=== PATIENT | female | born 1985 | race African-American/Black ===

== ENCOUNTER 2016-05-19 17:55 | Inpatient (IN) | payer BC, OTHER ==
[2016-05-19] MEDS ORDERED: NORMAL SALINE 1000 ML 1,000 ML IV ONE (18:07)
[2016-05-19] MEDS ORDERED: KETAMINE HCL INJ 500 MG/10 ML VIAL ONE (18:27)
[2016-05-19 18:32] LABS: ABSOLUTE LYMPHOCYTES (AUTO) 0.8 10^3/uL (0.5-4.7); ABSOLUTE MONOCYTES (AUTO) 0.7 10^3/uL (0.1-1.4); ABSOLUTE NEUT (AUTO) 6.6 10^3/uL (1.7-8.2); BASOPHILS % (AUTO) 0.4 % (0-2); EOSINOPHILS % (AUTO) 0.4 % (0-6); HEMOGLOBIN 12.8 g/dL (12.0-15.5); HGB HCT DIFFERENCE 0.4; LYMPHOCYTES % (AUTO) 10.4 % (13-45); MEAN CORPUSCULAR HEMOGLOBIN 31.4 pg (27.0-33.4); MEAN CORPUSCULAR HGB CONC 33.8 g/dL (32.0-36.0); MEAN CORPUSCULAR VOLUME 93 fl (80-97); MONOCYTES % (AUTO) 8.2 % (3-13); RED BLOOD COUNT 4.09 10^6/uL (3.72-5.28); RED CELL DISTRIBUTION WIDTH 12.9 % (11.5-14.0); SEGMENTED NEUTROPHILS % (AUTO) 80.6 % (42-78); WHITE BLOOD COUNT 8.1 10^3/uL (4.0-10.5)
[2016-05-19 18:53] LABS: ALANINE AMINOTRANSFERASE 29 U/L (9-52); ALBUMIN 4.1 g/dL (3.5-5.0); ALKALINE PHOSPHATASE 69 U/L (38-126); ANION GAP 13 (5-19); ASPARTATE AMINO TRANSFERASE 26 U/L (14-36); BILIRUBIN,TOTAL 0.5 mg/dL (0.2-1.3); BLOOD UREA NITROGEN 8 mg/dL (7-20); CALCIUM 9.2 mg/dL (8.4-10.2); CARBON DIOXIDE 21 mmol/L (22-30); CHLORIDE 106 mmol/L (98-107); CREATININE RESULT 0.67 mg/dL (0.52-1.25); GLUCOSE 99 mg/dL (75-110); TOTAL PROTEIN 7.6 g/dL (6.3-8.2)
--- NOTE | 2016-05-19 19:19 | ER Document Report ---
ED Respiratory Problem - General Mode of Arrival: Medic Information source: Patient - HPI Patient complains to provider of: Short of breath Onset: Just prior to arrival Duration: Worse/persistent Severity: Severe Associated symptoms: None Similar symptoms previously: No Recently seen / treated by doctor: No <QUIANA DUDLEY - Last Filed: 05/19/16 21:38> <MEGHANA LAWRENCE - Last Filed: 05/19/16 23:30> - General Chief Complaint: Breathing Difficulty Stated Complaint: CHEST PAIN Notes: Patient is a 30 year old female that presents to the emergency department today with complaints of a sudden onset of shortness of breath just prior to arrival. EMS reports hearing no breath sounds on the left side and they are concerned for a possible pneumothorax. Patient denies any other symptoms. (QUIANA DUDLEY) Past Medical History - General Information source: Patient - Social History Smoking Status: Never Smoker Cigarette use (# per day): No Frequency of alcohol use: None Drug Abuse: None Lives with: Family Family History: Reviewed & Not Pertinent - Medical History Medical History: Negative Surgical Hx: Negative <QUIANA DUDLEY - Last Filed: 05/19/16 21:38> Review of Systems - Review of Systems Constitutional: No symptoms reported EENT: No symptoms reported Cardiovascular: No symptoms reported Respiratory: See HPI, Short of breath - with associated pain Gastrointestinal: No symptoms reported Genitourinary: No symptoms reported Female Genitourinary: No symptoms reported Musculoskeletal: No symptoms reported Skin: No symptoms reported Hematologic/Lymphatic: No symptoms reported Neurological/Psychological: No symptoms reported -: Yes All other systems reviewed and negative <QUIANA DUDLEY - Last Filed: 05/19/16 21:38> Physical Exam <QUIANA DUDLEY - Last Filed: 05/19/16 21:38> <MEGHANA LAWRENCE - Last Filed: 05/19/16 23:30> - Vital signs Vitals: Temp Pulse Resp BP Pulse Ox 97.7 F 113 H 34 H 107/57 L 100 05/19/16 18:05 05/19/16 18:05 05/19/16 18:05 05/19/16 18:05 05/19/16 18:05 (MEGHANA LAWRENCE) - Notes Notes: Physical Exam: General: Alert, in severe distress. HEENT: Normocephalic. Atraumatic. PERRL. Extraocular movements intact. Oropharynx clear. Neck: Supple. Non-tender. Respiratory: Severe respiratory distress. Tachypneic, retractions, no breath sounds on the left. Cardiovascular: Tachycardic, regular rhythm. Abdominal: Normal Inspection. Non-tender. No distension. Normal Bowel Sounds. Back: Non-tender. No deformity or step off. Extremities: Moves all four extremities. Upper extremities: Normal inspection. Non-tender. Normal color. Normal ROM. Normal temperature. Lower extremities: Normal inspection. Non-tender. No edema. Normal color. Normal ROM. Normal temperature. Neurological: Normal cognition. AAOx4. Normal speech. Psychological: Normal affect. Normal Mood. Skin: Warm. Dry. Normal color. (QUIANA DUDLEY) Course - Laboratory Result Diagrams: 05/19/16 18:21 05/19/16 18:21 - Consults Surgery Time consulted: 19:50 Consulted provider: will come to ER <QUIANA DUDLEY - Last Filed: 05/19/16 21:38> - Laboratory Result Diagrams: 05/19/16 18:21 05/19/16 18:21 - Diagnostic Test Radiology reviewed: Image reviewed, Reports reviewed <MEGHANA LAWRENCE - Last Filed: 05/19/16 23:30> - Re-evaluation Re-evalutation: 05/19/16 Patient presents with large spontaneous pneumothorax. Patient had a chest tube placed with some reexpansion. Surgeon was called to evaluate the patient who placed a small straight catheter as well. Patient will be admitted to the surgical service. Otherwise stable. Blood work within normal limits. Stable at time of admission. (MEGHANA LAWRENCE) - Vital Signs Vital signs: Temp Pulse Resp BP Pulse Ox 97.7 F 113 H 14 115/81 100 05/19/16 18:05 05/19/16 18:05 05/19/16 20:01 05/19/16 20:00 05/19/16 20:01 (MEGHANA LAWRENCE) - Laboratory Laboratory results interpreted by me: 05/19/16 05/19/16 18:21 18:21 Seg Neutrophils % 80.6 H Lymphocytes % 10.4 L Carbon Dioxide 21 L (QUIANA DUDLEY) (MEGHANA LAWRENCE) - Consults Surgery Reason for consultation: 05/19/16 19:50 Pneumothorax, Dr. Martin. (QUIANA DUDLEY) Procedures - Chest Tube Left Consent obtained: Yes Chest tube pre-insertion: Sterile PPE donned, Chloraprep applied, Sterile drapes applied Anesthetic type: 1% Lidocaine Chest tube post-insertion: Air gambino heard, Sutured, Position confirmed w/ CXR, Water seal, Low intermittent suction Number of attempts: 1 Complications: No - Conscious Sedation Conscious sedation Consent obtained: No Emergent conditions applies.: E. - ASA Classification Airway Evaluation: Normal anatomy Mallampati Classification: Class 1 Used during procedure: Suction available, IV access obtained, Pulse ox on pt., telemetry monitor on pt. Medications administered: Ketamine I personally performed/intraservice time: Sedation, Procedure, 31-45 min Complications: No - Additional Procedures Chest tube placement Additional Procedures: Other - Left chest tube placed. Area was prepped with ChloraPrep. Fourth intercostal space was palpated. 16 Bel[place]ian chest tube placed in the axillary line on the left. Good air return. Patient tolerated well. X-ray shows some reexpansion of lung. <MEGHANA LAWRENCE - Last Filed: 05/19/16 23:30> Critical Care Note - Critical Care Note Total time excluding time spent on procedures (mins): 45 - evaluation and management of difficulty breathing, multiple re-evaluations, consultation of surgeon, coordination of admission, counseling patient <MEGHANA LAWRENCE - Last Filed: 05/19/16 23:30> Discharge <QUIANA DUDLEY - Last Filed: 05/19/16 21:38> - Discharge Admitting Provider: Surgicalist - [facility] Unit Admitted: Surgical Floor <MEGHANA LAWRENCE - Last Filed: 05/19/16 23:30> - Discharge Clinical Impression: Spontaneous pneumothorax Condition: Stable Disposition: ADMITTED INPATIENT Scribe Attestation: 05/19/16 23:30 I personally performed the services described in the documentation, reviewed and edited the documentation which was dictated to the scribe in my presence, and it accurately records my words and actions. (MEGHANA LAWRENCE) Scribe Documentation - Scribe Written by Scribe:: Quiana Dudley (05/19/2016) acting as scribe for :: Heath <QUIANA DUDLEY - Last Filed: 05/19/16 21:38>
[2016-05-19] MEDS ORDERED: MORPHINE SULFATE 10 MG/ML INJ ONE (19:51)
--- NOTE | 2016-05-19 20:32 | EKG REPORT ---
SEVERITY:- BORDERLINE ECG - SINUS RHYTHM NONSPECIFIC ST-T CHANGES LATERAL LEADS : Confirmed by: Miguel Cornejo MD 19-May-2016 20:30:57
[2016-05-20] MEDS: OXYCODONE-ACETAMINOPHEN 5-325 MG TABLET PO PRN ×2 (00:09→07:58)
--- NOTE | 2016-05-20 00:43 | HISTORY AND PHYSICAL E ---
History and Physical NAME: ILAN SHI : 1985 AGE: 30Y ADMITTED: 05/19/2016 ROOM: ED70 REASON FOR ADMISSION: Left pneumothorax. HISTORY OF PRESENT ILLNESS: This 30-year-old female was in her usual state of health until today when she developed sudden pain in the left scapular region which radiated to the mid back, left shoulder and left side of her neck. The patient then subsequently developed shortness of breath which then brought her to the emergency room. The patient arrived in the emergency room with complaints of shortness of breath, and it was noted that the EMS heard no breath sounds on the left side. The patient denies any previous history of such symptoms or presentation and chest x-ray in the emergency room revealed a large left pneumothorax. The patient is in need of admission and placement of a chest tube. PAST MEDICAL HISTORY: The patient has no history of diabetes mellitus, hypertension, cardiac, renal, liver disease or bleeding tendencies. No history of anesthesia problems in the family. No previous episodes of such pain in the past. PAST SURGICAL HISTORY: 1. Tonsillectomy in 2006. 2. Anal sphincterotomy in 2007. ALLERGIES: SHELLFISH ONLY. 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 The patient does not smoke cigarettes. The patient does drink 1-2 beers every day or every other day only and denies any illicit drugs. REVIEW OF SYSTEMS: Patient has no symptoms referable to the ear, nose and throat, cardiovascular, gastrointestinal, genitourinary, musculoskeletal, integumentary, lymphatic, endocrine, or psychiatric systems. The patient does complain of shortness of breath only. PHYSICAL EXAMINATION: GENERAL: Reveals a 33-year-old female who is thin, normally nourished and normally developed who is in mild respiratory distress. VITAL SIGNS: Noted, temperature 97, pulse 113, respirations 14, blood pressure 115/81, saturations 100% on room air. HEENT: There is no conjunctival pallor or scleral icterus. Mucous membranes are moist and pink. NECK: Supple without nodes, masses, thyroid, JVD or bruits. Trachea midline. CHEST: Chest wall shows good excursions. LUNGS: There were absent breath sounds on the left side. No wheezes are noted. No tracheal deviation is noted. CARDIOVASCULAR: S1,S2 are audible without murmurs or gallops. ABDOMEN: Soft. Bowel sounds are present. No hernias or bruits. EXTREMITIES: Show full range of motion. PELVIC: Deferred. RECTAL: Deferred. IMPRESSION: Left pneumothorax. PLAN: The patient has had a chest tube inserted by Dr. Joe, but there was only partial expansion. We will place a second chest tube anteriorly and we will use a Heimlich chest tube, which will be placed in the second intercostal space of the midclavicular line to obtain complete expansion of the lung. Chest x-ray post insertion of this tube reveals 90% to 95% expansion of the lung with only a small 5% to 10% residual pneumothorax noted. Both chest tubes are placed on suction and patient will undergo daily chest x-ray at this time. No air leak has been determined in the Pleur-Evac and, therefore, this is the patient's first episode of pneumothorax and should not need video-assisted thorascopic surgery unless she develops air leak that continues or a second pneumothorax. DICTATING PHYSICIAN: YVETTE WILSON M.D. [id number] PHY#: [id number] ID: [id number] JOB#: [id number] ACCT: [id number] cc:YVETTE WILSON M.D. >
--- NOTE | 2016-05-20 02:08 | OPERATIVE REPORT E ---
Operative Report NAME: ILAN SHI : 1985 AGE: 30Y DATE OF SURGERY: 05/19/2016 ROOM: ED70 PREOPERATIVE DIAGNOSIS: Persistent left pneumothorax status post insertion of chest tube by Dr. Joe. POSTOPERATIVE DIAGNOSIS: Persistent left pneumothorax status post insertion of chest tube by Dr. Joe. PROCEDURE PERFORMED: Insertion of Heimlich chest tube to the left pleural space to resolve a persistent pneumothorax. SURGEON: YVETTE WILSON M.D. ANESTHESIA: Local 1:10 Xylocaine. COMPLICATIONS: None. CONDITION: Stable. INDICATION FOR PROCEDURE: This 30-year-old female presented to the hospital with a spontaneous left pneumothorax which was at least 50%. Patient underwent placement of a chest tube by Dr. Joe to the left lateral chest but a persistent pneumothorax was noted. Patient now will be undergoing placement of an anterior chest tube to resolve the residual pneumothorax. The patient's chest x-ray was reviewed status post insertion of chest tube by Dr. Joe which revealed a persistent pneumothorax. After consent was obtained, the patient's left anterior chest was prepped and draped in the usual sterile manner. Local anesthesia was injected just over the second rib and then a small stab wound incision was made directly over the second rib. The incision was carried down through the skin and subcutaneous tissue down to the periosteum of the second rib. The Heimlich chest tube was then placed directly through this incision and then the needle and the tube were walked along the second rib until we reached the superior border of the second rib in the midclavicular line and the needle and chest tube were advanced into the pleural space, and then the chest tube was advanced as the needle was removed. We then connected the test tube to the stop cock, and then this was connected to the Heimlich valve. We noted the expression of air through the Heimlich valve which was then connected to the pleural VAC which showed no evidence of an air leak. The small Heimlich chest tube was then secured in the usual fashion and covered with two Band-Aids, and the chest x-ray post-insertion of the Heimlich chest tube showed only a small 5% residual pneumothorax with near complete expansion of the lung. The patient will be admitted to the hospital. Both chest tubes will remain on suction and patient will have a chest x-ray in the a.m. DICTATING PHYSICIAN: YVETTE WILSON M.D. [id number] PHY#: [id number] ID: [id number] JOB#: [id number] ACCT: [id number] cc:YVETTE WILSON M.D. >
[2016-05-20] MEDS: NORMAL SALINE 1000 ML 1,000 ML IV PRN (04:25)
[2016-05-20] MEDS: ENOXAPARIN SODIUM INJ 40 MG/0.4 ML DISP.SYRIN SUBCUT SCH (07:57)
--- NOTE | 2016-05-20 16:18 | PROGRESS NOTE E ---
Progress Note NAME: ILAN SHI : 1985 AGE: 30Y DATE: 05/20/2016 ROOM: 533 SUBJECTIVE: The patient was admitted for spontaneous pneumothorax of the left lung. She is a smoker, used to smoke about 2 packs before and now with half a pack. Admitted with pneumothorax up to 20% to 30%. He had a chest tube done in the ER and then another apical tube by surgicalist yesterday. The patient feels better, no shortness of breath. Both chest tubes are under suction. OBJECTIVE: X-ray today shows pneumothorax up to 20%. There are no bullous lesions, rather, a small increase in this compared to yesterday, but there is active leak in the chest and both lungs with good air entry, particularly the left side and mildly diminished as per the pneumothorax. ASSESSMENT AND PLAN: I will obtain a CT scan of the chest to see if she has any significant amount of bullae in the chest. Based on that, will have further therapy. DICTATING PHYSICIAN: MARYJANE BURNS M.D. [id number] PHY#: [id number] ID: [id number] JOB#: [id number] ACCT: [id number] cc: > ANND
[2016-05-21] MEDS: ENOXAPARIN SODIUM INJ 40 MG/0.4 ML DISP.SYRIN SUBCUT SCH (08:22)
[2016-05-21] MEDS: NORMAL SALINE 1000 ML 1,000 ML IV PRN ×2 (08:57→14:55)
[2016-05-21] MEDS ORDERED: FENTANYL CITRATE INJ/PF 100 MCG/2 ML AMPUL ONE ×2 (11:38→13:34)
[2016-05-21] MEDS ORDERED: MIDAZOLAM 2 MG/2 ML INJ ONE (11:38)
[2016-05-21] MEDS ORDERED: PROPOFOL INJ 200 MG/20 ML VIAL IV ONE ×2 (11:39→13:05)
[2016-05-21] MEDS ORDERED: BUPIVACAINE HCL 0.5 % INJ/PF 30 ML SDV ONE (11:58)
[2016-05-21] MEDS ORDERED: BUPIVACAINE HCL 0.5%-EPI 1:200000 INJ/PF 30 ML VIAL ONE (11:59)
[2016-05-21] MEDS ORDERED: MORPHINE SULFATE 10 MG/ML INJ IV PRN (12:23)
[2016-05-21] MEDS ORDERED: OXYCODONE-ACETAMINOPHEN 5-325 MG TABLET PO PRN ×2 (12:23)
[2016-05-21] MEDS ORDERED: PROMETHAZINE HCL INJ 25 MG/1 ML VIAL IV PRN ×2 (12:23)
[2016-05-21] MEDS ORDERED: LIDOCAINE 1% INJ-PF (10 MG/ML) 30 ML SDV ONE (12:26)
[2016-05-21] MEDS ORDERED: LIDOCAINE 1%/EPINEPHRINE INJ 20 ML VIAL ONE (12:26)
[2016-05-21] MEDS: FENTANYL CITRATE INJ/PF 100 MCG/2 ML AMPUL IV PRN ×15 (12:39→13:23)
[2016-05-21] MEDS: DIPHENHYDRAMINE HCL 50 MG/ML VIAL IV PRN ×5 (12:39→13:23)
[2016-05-21] MEDS: MEPERIDINE HCL/PF INJ 25 MG/1 ML DISP.SYRIN IV PRN ×4 (12:41→13:23)
[2016-05-21] MEDS ORDERED: ONDANSETRON HCL INJ/PF 4 MG/2 ML SDV ONE (14:27)
[2016-05-21] MEDS ORDERED: LIDOCAINE 2% INJ-PF (20 MG/ML) 10 ML AMPUL ONE (14:27)
[2016-05-21] MEDS: MORPHINE SULFATE 10 MG/ML INJ IV PRN (14:50)
[2016-05-21] MEDS: OXYCODONE-ACETAMINOPHEN 5-325 MG TABLET PO PRN ×2 (17:33→23:28)
[2016-05-21] MEDS ORDERED: KETOROLAC TROMETHAMINE INJ/PF 30 MG/1 ML SDV IV PRN (17:55)
[2016-05-21] MEDS ORDERED: LORAZEPAM INJ 2 MG/1 ML VIAL IV ONE (18:00)
--- NOTE | 2016-05-21 18:40 | OPERATIVE REPORT E ---
Operative Report NAME: ILAN SHI : 1985 AGE: 30Y DATE OF SURGERY: 05/21/2016 ROOM: 533 PREOPERATIVE DIAGNOSIS: Residual recurrent left-sided pneumothorax with the previously placed chest tubes not functioning/malfunctioning. POSTOPERATIVE DIAGNOSIS: Residual recurrent left-sided pneumothorax with the previously placed chest tubes not functioning/malfunctioning. OPERATION: 1. Insertion of #2 lead chest tube into the left pleural apical area under monitored anesthesia care. 2. Removal of the malfunctioning previous chest tubes. SURGEON: MARYJANE BURNS M.D. ANESTHESIA: Monitored anesthesia care. ESTIMATED BLOOD LOSS: None. SPECIMENS: None. HISTORY OF PRESENT ILLNESS AND INDICATIONS: The patient presented with a spontaneous pneumothorax. She had 1 chest tube placed by emergency room physician and then another tube by surgical team about 3 days ago. The patient did feel better, and the next day revealed increasing pneumothorax. We did a CT scan of the chest which revealed no major bleb, no bullous disease , but the chest tubes are malfunctioning and pulling and retracting. Also because of the recurrent nature, there needs to be proper placement of the tube under monitored anesthesia care under sterile conditions. DESCRIPTION OF PROCEDURE: The patient was placed in the slight reverse Trendelenburg position. The chest wall, particularly on the left side was cleaned and draped for sterile field. Previously placed chest tubes are removed and then in the fifth intercostal space on the left side about a centimeter incision was made, intercostal space was dissected, staying on top of the upper margin of the fifth rib. A #28 chest tube was placed into the apex of the left pleural cavity and the tube was nicely secured in place by using 0 silk sutures and dressings were applied. The patient transferred to recovery room in stable condition. DICTATING PHYSICIAN: MARYJANE BURNS M.D. [id number] PHY#: [id number] ID: [id number] JOB#: [id number] ACCT: [id number] cc:MARYJANE BURNS M.D. > MTDD
[2016-05-22] MEDS: OXYCODONE-ACETAMINOPHEN 5-325 MG TABLET PO PRN ×3 (04:20→20:48)
[2016-05-22] MEDS: ENOXAPARIN SODIUM INJ 40 MG/0.4 ML DISP.SYRIN SUBCUT SCH (08:18)
[2016-05-22] MEDS: NORMAL SALINE 1000 ML 1,000 ML IV PRN (13:32)
--- NOTE | 2016-05-22 14:53 | PDOC PROGRESS REPORT ---
Subjective Progress Note for:: 05/22/16 Physical Exam Vital Signs: Temp Pulse Resp BP Pulse Ox 98.5 F 95 18 146/96 H 100 05/22/16 11:31 05/22/16 11:31 05/22/16 11:31 05/22/16 11:31 05/22/16 11:31 Intake & Output 05/21/16 05/22/16 05/23/16 06:59 06:59 06:59 Intake Total 1820 2509 Output Total 15 Balance 1820 2494 Weight 55.3 kg 57.4 kg Results Impressions: Chest CT 05/20/16 00:00 IMPRESSION: 40 to 50% left-sided pneumothorax. There is a small left-sided chest tube in place. There is a small amount of subcutaneous emphysema. The large bore chest tube lies outside of the chest cavity. Chest X-Ray 05/22/16 06:00 IMPRESSION: Small left apical pneumothorax. Less than 5%. Assessment & Plan - Plan Summary Plan Summary: pneum resolving, less than 5% will repeat xray this evening off suction , if remain stable, then will DC chest tube and DC home
--- NOTE | 2016-05-22 20:25 | PDOC PROGRESS REPORT ---
Subjective Progress Note for:: 05/22/16 Subjective:: No shortness of Breath Mild to moderate pain Physical Exam Vital Signs: Temp Pulse Resp BP Pulse Ox 99.2 F 72 16 149/94 H 100 05/22/16 15:25 05/22/16 15:25 05/22/16 15:25 05/22/16 15:25 05/22/16 15:25 Intake & Output 05/21/16 05/22/16 05/23/16 06:59 06:59 06:59 Intake Total 1820 2509 1380 Output Total 15 Balance 1820 2494 1380 Weight 55.3 kg 57.4 kg Results Impressions: Chest CT 05/20/16 00:00 IMPRESSION: 40 to 50% left-sided pneumothorax. There is a small left-sided chest tube in place. There is a small amount of subcutaneous emphysema. The large bore chest tube lies outside of the chest cavity. Chest X-Ray 05/22/16 18:00 IMPRESSION: INCREASED LEFT-SIDED PNEUMOTHORAX DESPITE CHEST TUBE IN PLACE. Assessment & Plan - Plan Summary Plan Summary: Pneumothorax was less than 5% this morrnig on suction. Suction DCd to evalutae the possibility of resolution without recurrence and for the possibility of removing the chest tube. Repeat X ray revealed increased pneumo up to 20 % off the suction - obviously indicating the need to continue the suction for longer . Keep the suction with daily re -evaluations and X rays, May need Pleurodesis / possible thoracoscopy in the future.
[2016-05-23] MEDS: OXYCODONE-ACETAMINOPHEN 5-325 MG TABLET PO PRN ×5 (01:24→19:55)
--- NOTE | 2016-05-23 07:06 | PDOC PROGRESS REPORT ---
Subjective Progress Note for:: 05/23/16 Physical Exam Vital Signs: Temp Pulse Resp BP Pulse Ox 99.1 F 71 16 130/86 H 99 05/23/16 03:39 05/23/16 03:39 05/23/16 03:39 05/23/16 03:39 05/23/16 03:39 Intake & Output 05/22/16 05/23/16 05/24/16 06:59 06:59 06:59 Intake Total 2509 1620 Output Total 15 Balance 2494 1620 Weight 57.4 kg 57.5 kg Results Impressions: Chest CT 05/20/16 00:00 IMPRESSION: 40 to 50% left-sided pneumothorax. There is a small left-sided chest tube in place. There is a small amount of subcutaneous emphysema. The large bore chest tube lies outside of the chest cavity. Chest X-Ray 05/22/16 18:00 IMPRESSION: INCREASED LEFT-SIDED PNEUMOTHORAX DESPITE CHEST TUBE IN PLACE. Assessment & Plan - Plan Summary Plan Summary: Recurrent pneumo - off the suction, placed back on the suction, CXR this morning. pOSSIBLE PLEUDESIS / THORACOSCOPY IN THE FUTURE BASED ON THE PROGRESS NEX FEW DAYS
[2016-05-23] MEDS: ENOXAPARIN SODIUM INJ 40 MG/0.4 ML DISP.SYRIN SUBCUT SCH (09:16)
[2016-05-24] MEDS: OXYCODONE-ACETAMINOPHEN 5-325 MG TABLET PO PRN ×2 (00:28→17:58)
[2016-05-24] MEDS ORDERED: LIDOCAINE 0.5% INJ-PF (5 MG/ML) 50 ML SDV IV PRN (09:36)
[2016-05-24] MEDS: ENOXAPARIN SODIUM INJ 40 MG/0.4 ML DISP.SYRIN SUBCUT SCH (11:59)
[2016-05-24] MEDS ORDERED: LIDOCAINE 0.5% INJ-PF (5 MG/ML) 50 ML SDV ONE (12:13)
--- NOTE | 2016-05-24 13:04 | PDOC PROGRESS REPORT ---
Subjective Progress Note for:: 05/24/16 Subjective:: Left-sided chest pain with deep breaths. Physical Exam Vital Signs: Temp Pulse Resp BP Pulse Ox 98.2 F 73 18 125/85 99 05/24/16 07:57 05/24/16 07:57 05/24/16 07:57 05/24/16 07:57 05/24/16 07:57 Intake & Output 05/23/16 05/24/16 05/25/16 06:59 06:59 06:59 Intake Total 1620 1186 Output Total 40 Balance 1620 1146 Weight 57.5 kg 57.5 kg General appearance: PRESENT: no acute distress Respiratory exam: PRESENT: other - Decreased breath sounds on the left side. Chest tube in place. No air leak seen but no variation of the water column with respiration. Cardiovascular exam: PRESENT: RRR Results Impressions: Chest CT 05/20/16 00:00 IMPRESSION: 40 to 50% left-sided pneumothorax. There is a small left-sided chest tube in place. There is a small amount of subcutaneous emphysema. The large bore chest tube lies outside of the chest cavity. Chest X-Ray 05/24/16 06:00 IMPRESSION: Air leak. Interval increase in size of pneumothorax. No evidence of tension. Assessment & Plan - Diagnosis (1) Spontaneous pneumothorax Is this a current diagnosis for this admission?: YesPlan: Status post now 3 separate chest tube placements without reinsufflation of her lung. I do not think the present chest tube is working. Its position does not appear ideal. I will place new chest tube with hopefully the tip at the apex. I have discussed with the patient the risk and benefits of the procedure including risk of lung injury, bleeding, infection. Patient understands and agrees to proceed.
--- NOTE | 2016-05-24 13:13 | Operative Report ---
Operative Report DATE OF SURGERY: 05/24/16 PREOPERATIVE DIAGNOSIS: Left Pneumothorax POSTOPERATIVE DIAGNOSIS: Left pneumothorax OPERATION: Left tube thoracostomy SURGEON: NEENA KEARNEY ANESTHESIA: GA TISSUE REMOVED OR ALTERED: None COMPLICATIONS: None ESTIMATED BLOOD LOSS: minimal INTRAOPERATIVE FINDINGS: Initial air leak then no airleak. PROCEDURE: Informed consent was obtained. The procedure was done at the patient's bedside. Patient's left chest was prepped and draped in usual sterile fashion. Patient had a pre-existing chest tube at the anterior axillary line just below the mammary crease. Local anesthetic was injected just inferior to 2 rib spaces above the pre-existing chest tube. Incision was made. Local anesthetic was injected at the pleural lining as well. The pleural cavity was then entered with a lynne clamp. There was a gush of air. 28 chest tube was placed without difficulty. There was initially airleak and then no further air leak but there was variation of the water column with respirations. The chest tube was sutured in place. Dressings were applied. Stat portable chest x-ray was ordered.
[2016-05-24] MEDS: MORPHINE SULFATE 10 MG/ML INJ IV PRN ×2 (13:18→23:26)
[2016-05-25] MEDS: MORPHINE SULFATE 10 MG/ML INJ IV PRN ×2 (07:07→21:55)
[2016-05-25] MEDS: ENOXAPARIN SODIUM INJ 40 MG/0.4 ML DISP.SYRIN SUBCUT SCH (08:33)
[2016-05-25] MEDS: OXYCODONE-ACETAMINOPHEN 5-325 MG TABLET PO PRN (14:24)
--- NOTE | 2016-05-26 04:52 | PDOC PROGRESS REPORT ---
Subjective Progress Note for:: 05/25/16 Subjective:: Denies shortness of breath. Has chest pain with deep inspiration but not otherwise. Physical Exam Vital Signs: Temp Pulse Resp BP Pulse Ox 98.3 F 79 18 117/69 100 05/25/16 23:27 05/25/16 23:27 05/25/16 23:27 05/25/16 23:27 05/25/16 23:27 Intake & Output 05/24/16 05/25/16 05/26/16 06:59 06:59 06:59 Intake Total 1186 619 750 Output Total 40 Balance 1146 619 750 Weight 57.5 kg 57.5 kg General appearance: PRESENT: no acute distress Eye exam: PRESENT: EOMI Respiratory exam: PRESENT: clear to auscultation brendan, other - 2 chest tubes on the left side are in place. The superior chest tube to wall suction. The inferior chest tube to waterseal. No air leak. Good tidaling. Neurological exam: PRESENT: alert, oriented to situation Results Impressions: Chest CT 05/20/16 00:00 IMPRESSION: 40 to 50% left-sided pneumothorax. There is a small left-sided chest tube in place. There is a small amount of subcutaneous emphysema. The large bore chest tube lies outside of the chest cavity. Chest X-Ray 05/25/16 07:00 IMPRESSION: STABLE LEFT CHEST TUBES. NO PNEUMOTHORAX. Assessment & Plan - Diagnosis (1) Spontaneous pneumothorax Is this a current diagnosis for this admission?: YesPlan: Review chest x-ray. No pneumothorax. Chest tubes in good position. Continue upper chest tube to wall suction.
[2016-05-26] MEDS: OXYCODONE-ACETAMINOPHEN 5-325 MG TABLET PO PRN ×3 (05:48→20:17)
[2016-05-26] MEDS: ENOXAPARIN SODIUM INJ 40 MG/0.4 ML DISP.SYRIN SUBCUT SCH (08:53)
--- NOTE | 2016-05-26 18:16 | PDOC PROGRESS REPORT ---
Subjective Progress Note for:: 05/26/16 Subjective:: No shortness of breath. Much less chest pain. Slept well overnight. Physical Exam Vital Signs: Temp Pulse Resp BP Pulse Ox 98.5 F 80 14 130/95 H 98 05/26/16 16:07 05/26/16 16:07 05/26/16 16:07 05/26/16 16:07 05/26/16 16:07 Intake & Output 05/25/16 05/26/16 05/27/16 06:59 06:59 06:59 Intake Total 619 764 3 Output Total 276 Balance 619 488 3 Weight 57.5 kg 57.5 kg General appearance: PRESENT: no acute distress Eye exam: PRESENT: EOMI, other - Glasses Respiratory exam: PRESENT: clear to auscultation brendan, other - Dressings taken down. Lower chest tube removed without difficulty. Upper chest tube redressed. Upper chest tube placed to water seal. After remaining chest tube was placed to water seal it was checked and was tidaling well and had no air leak. Neurological exam: PRESENT: alert, oriented to situation Results Impressions: Chest CT 05/20/16 00:00 IMPRESSION: 40 to 50% left-sided pneumothorax. There is a small left-sided chest tube in place. There is a small amount of subcutaneous emphysema. The large bore chest tube lies outside of the chest cavity. Chest X-Ray 05/25/16 07:00 IMPRESSION: STABLE LEFT CHEST TUBES. NO PNEUMOTHORAX. Assessment & Plan - Diagnosis (1) Spontaneous pneumothorax Is this a current diagnosis for this admission?: YesPlan: Doing well. Lower chest tube removed. Upper chest tube placed to water seal. After upper chest tube was placed to water seal it was again checked and was tidaling well and had no air leak. Chest x-ray in morning.
[2016-05-27] MEDS: OXYCODONE-ACETAMINOPHEN 5-325 MG TABLET PO PRN ×4 (02:42→22:00)
[2016-05-27] MEDS: NORMAL SALINE 1000 ML 1,000 ML IV PRN (04:09)
[2016-05-27] MEDS: ENOXAPARIN SODIUM INJ 40 MG/0.4 ML DISP.SYRIN SUBCUT SCH (08:28)
--- NOTE | 2016-05-27 13:01 | PDOC PROGRESS REPORT ---
Subjective Progress Note for:: 05/27/16 Subjective:: No complaints; no shortness of breath Physical Exam Vital Signs: Temp Pulse Resp BP Pulse Ox 98.1 F 78 20 118/78 100 05/27/16 11:37 05/27/16 11:37 05/27/16 11:37 05/27/16 11:37 05/27/16 11:37 Intake & Output 05/26/16 05/27/16 05/28/16 06:59 06:59 06:59 Intake Total 764 1533 Output Total 276 Balance 488 1533 Weight 57.5 kg 57.5 kg General appearance: PRESENT: no acute distress Respiratory exam: PRESENT: other - Left chest examined. Left chest tube TO Pleur-evac, water seal. There is grade fluctuation with breathing, and a small occasional air bubble leaking out. The chest itself is normal with clear breath sounds bilaterally; there is no subcutaneous emphysema. Results Impressions: Chest CT 05/20/16 00:00 IMPRESSION: 40 to 50% left-sided pneumothorax. There is a small left-sided chest tube in place. There is a small amount of subcutaneous emphysema. The large bore chest tube lies outside of the chest cavity. Chest X-Ray 05/27/16 06:00 IMPRESSION: Trace left apical pneumothorax adjacent to the chest tube tip Persistent left basilar atelectasis with trace pleural effusion. Pneumonia could not Assessment & Plan - Diagnosis (1) Spontaneous pneumothorax Is this a current diagnosis for this admission?: YesPlan: Now status post fourth chest tube placement, apically position, with rare air leak on water seal; days chest x-ray on water seal shows a very small apical pneumothorax otherwise the lung appears expanded. There is some atelectasis at the left lung base. I suggested we keep her on water seal as she is comfortable, and the air leak is not expanding. Land repeat chest x-ray in the morning; if she, we will place chest tube to suction.
[2016-05-28] MEDS: OXYCODONE-ACETAMINOPHEN 5-325 MG TABLET PO PRN ×5 (02:13→21:43)
[2016-05-28] MEDS: ENOXAPARIN SODIUM INJ 40 MG/0.4 ML DISP.SYRIN SUBCUT SCH (08:03)
--- NOTE | 2016-05-28 13:30 | PDOC PROGRESS REPORT ---
Subjective Progress Note for:: 05/28/16 Subjective:: Earlier today. No shortness of breath, no lightheadedness, no complaints except occasional pain at chest tube site. Physical Exam Vital Signs: Temp Pulse Resp BP Pulse Ox 97.9 F 83 16 116/70 98 05/28/16 11:48 05/28/16 11:48 05/28/16 11:48 05/28/16 11:48 05/28/16 11:48 Intake & Output 05/27/16 05/28/16 05/29/16 06:59 06:59 06:59 Intake Total 1533 1280 Output Total 0 10 Balance 1533 1280 -10 Weight 57.5 kg 56.3 kg General appearance: PRESENT: no acute distress Head exam: PRESENT: normocephalic Eye exam: PRESENT: EOMI Respiratory exam: PRESENT: clear to auscultation brendan, other - Chest tube dressing removed. More medial chest tube site healing nicely. Current chest tube site without issues. Vaseline gauze dressing placed. Patient tolerated well. Chest tube tidaling well, without air leak. Neurological exam: PRESENT: alert, oriented to situation Results Impressions: Chest CT 05/20/16 00:00 IMPRESSION: 40 to 50% left-sided pneumothorax. There is a small left-sided chest tube in place. There is a small amount of subcutaneous emphysema. The large bore chest tube lies outside of the chest cavity. Chest X-Ray 05/28/16 07:00 IMPRESSION: NO PNEUMOTHORAX IDENTIFIED ON TODAY'S STUDY. STABLE LEFT LOWER LOBE AIRSPACE DISEASE WITH PLEURAL EFFUSION. STABLE CHEST TUBE. Assessment & Plan - Diagnosis (1) Spontaneous pneumothorax Is this a current diagnosis for this admission?: YesPlan: Chest x-ray reviewed as well as radiologist report. Possible very small apical pneumothorax per my read. Clamp chest tube now. Repeat chest x-ray at 6 PM. Possibly remove last remaining chest tube pending the results chest x-ray.
[2016-05-29] MEDS: OXYCODONE-ACETAMINOPHEN 5-325 MG TABLET PO PRN ×5 (01:34→20:00)
[2016-05-29] MEDS: ENOXAPARIN SODIUM INJ 40 MG/0.4 ML DISP.SYRIN SUBCUT SCH (08:31)
--- NOTE | 2016-05-29 14:05 | PDOC PROGRESS REPORT ---
Subjective Progress Note for:: 05/29/16 Subjective:: last night had recurrent hemopneumothorax during clamping trial. Chest tube was returned to wall suction. This morning reports no shortness of breath. Physical Exam Vital Signs: Temp Pulse Resp BP Pulse Ox 98.0 F 68 16 117/65 100 05/29/16 05:24 05/29/16 07:00 05/29/16 05:24 05/29/16 05:24 05/29/16 05:24 Intake & Output 05/28/16 05/29/16 05/30/16 06:59 06:59 06:59 Intake Total 1280 1261 Output Total 0 40 210 Balance 1280 1221 -210 Weight 56.3 kg 57.2 kg General appearance: PRESENT: no acute distress Eye exam: PRESENT: EOMI Mouth exam: PRESENT: tongue midline Respiratory exam: PRESENT: clear to auscultation brendan, unlabored Neurological exam: PRESENT: alert, oriented to situation Results Impressions: Chest CT 05/20/16 00:00 IMPRESSION: 40 to 50% left-sided pneumothorax. There is a small left-sided chest tube in place. There is a small amount of subcutaneous emphysema. The large bore chest tube lies outside of the chest cavity. Chest X-Ray 05/29/16 08:00 IMPRESSION: NO RESIDUAL LEFT-SIDED PNEUMOTHORAX IDENTIFIED WITH CHEST TUBE IN PLACE. STABLE SMALL LEFT PLEURAL EFFUSION. Assessment & Plan - Diagnosis (1) Spontaneous pneumothorax Is this a current diagnosis for this admission?: YesPlan: Last evening had recurrent hemopneumothorax during clamping trial. Chest tube was returned to wall suction. Chest x-ray was reviewed this morning. He will pneumothorax has resolved. Chest tubes in good position. Does not appear to have an air leak. Chest tube is tidaling well. We'll transition chest tube to waterseal. Chest x-ray in a.m.
[2016-05-30] MEDS: OXYCODONE-ACETAMINOPHEN 5-325 MG TABLET PO PRN ×4 (00:04→15:53)
[2016-05-30] MEDS: ENOXAPARIN SODIUM INJ 40 MG/0.4 ML DISP.SYRIN SUBCUT SCH (08:35)
--- NOTE | 2016-05-30 10:32 | PDOC PROGRESS REPORT ---
Subjective Progress Note for:: 05/30/16 Subjective:: No complaints; no shortness of breath; patient getting by mouth pain medication. Physical Exam Vital Signs: Temp Pulse Resp BP Pulse Ox 98.7 F 100 16 108/67 100 05/30/16 07:42 05/30/16 07:42 05/30/16 07:42 05/30/16 07:42 05/30/16 07:42 Intake & Output 05/29/16 05/30/16 05/31/16 06:59 06:59 06:59 Intake Total 1261 1710 Output Total 40 210 Balance 1221 1500 Weight 57.2 kg 56.2 kg General appearance: PRESENT: no acute distress Respiratory exam: PRESENT: other - Chest tube site examined. It is clean; chest tube examined. There is no fluctuation in the chest tube water seal chamber of the Pleur-evac. Patient produces robust cough and deep inspiration Results Impressions: Chest X-Ray 05/30/16 06:00 IMPRESSION: Small left pleural effusion is again identified with some minimal associated atelectasis or infiltrate in left lung base. I cannot exclude a tiny residual basilar component of pneumothorax. Other findings as noted above Surgeons comment, :Chest tube appears to be in good position. Assessment & Plan - Diagnosis (1) Spontaneous pneumothorax Is this a current diagnosis for this admission?: YesPlan: Now status post fourth chest tube placement, apically position, with no evidence of fluctuation or air leak on clinical examination. Today's chest x- ray shows the lung essentially expanded with chest tube in good position. Multiple options for management include 1. Removal of chest tube, 2. Heimlich valve application, 3. Refer to tertiary care center for vats procedure We will place a Heimlich valve and see about getting patient discharged home as I believe she is reliable and lives locally. Manage the chest tube on an outpatient basis if she is agreeable.
[2016-05-30 16:50] VITALS: BP 116/60
--- NOTE | 2016-06-03 07:53 | DISCHARGE SUMMARY E ---
Discharge Summary NAME: ILAN SHI : 1985 AGE: 30Y ADMITTED: 05/19/2016 DISCHARGED: 05/30/2016 REASON FOR ADMISSION: Pneumothorax, left side. SUMMARY OF HOSPITALIZATION: The patient is a 31-year-old -Irish female, heavy smoker, who presented to the emergency department complaining of shortness of breath. She was found to have a collapsed left lung. Chest tube was placed by the emergency department and the patient was admitted to the surgicalist service. Please see her admission history and physical for a complete record. The patient was admitted to the surgicalist service. A second chest tube was placed by Dr. Mc Kat with improved expansion on her left lung. The patient had a CT scan of the chest, which was otherwise unremarkable. The patient subsequently dropped her lung and required a third chest tube placement by Dr. Burnett. The patient had an intermittent air leak, but never a persisting air leak. She ended up having a fourth chest tube placed with the removal of the initial 3 chest tubes in a subsequent fashion by Dr. Luis Hatfield on 05/24/2016. This chest tube was left in place until the patient was discharged home. The patient had negligible air leak, with near complete expansion on her lung by 05/30/2016. Because of the difficulty keeping her lung expanded, we elected to leave the last, single chest tube into position and send her home with the Heimlich valve, which she was in agreement with. FINAL DIAGNOSIS: Pneumothorax, likely due to apical *------* popping in patient with COPD status post management with serial chest tubes on the left side. DISPOSITION: The patient will be discharged home in the care of her family. Follow up with Dr. Maxwell or other general surgeon at [facility] in approximately 1 week with a PA lateral chest x-ray prior to that visit. Patient understands if she develops respiratory distress she will come to the emergency department for further evaluation. She will be prescribed pain medication and instructed to take a stool softener. DICTATING PHYSICIAN: VILLA MAXWELL M.D. [id number] PHY#: [id number] ID: [id number] JOB#: [id number] ACCT: [id number] cc:Alcides LONG, VILLA MAXWELL M.D. >
== END 2016-05-30 17:20 | disposition home or self-care (01) | DRG 201 ==
LOC: ER 17:55 → EH 20:37 → UNDOADMIN 20:37 → EH 21:23 → 5 05-20 02:47
PROVIDERS: ATTEND Surgery
PROC: 0W9B00Z Drainage of Left Pleural Cavity with Drainage Device, Open Approach (ICD-10-PCS; 2016-05-19)
PROC: 0W9B00Z Drainage of Left Pleural Cavity with Drainage Device, Open Approach (ICD-10-PCS; 2016-05-21)
PROC: 0WPBX0Z Removal of Drainage Device from Left Pleural Cavity, External Approach (ICD-10-PCS; 2016-05-21)
PROC: 0W9B00Z Drainage of Left Pleural Cavity with Drainage Device, Open Approach (ICD-10-PCS; principal; 2016-05-24)
DX: J93.83 Other pneumothorax (principal)
CPT/HCPCS: 36415; 520; 71010; 71020; 71250; 80053; 84484; 84702; 85025; 93005; 93010; 94799; 96360; 99291; J1650; J1885; J2060; J2250; J2270; J2405; J2704; J3010; J3490; J7030

== ENCOUNTER → 2016-06-02 | Outpatient (CLI) | payer BC | LOC: RAD 15:11 | PROVIDERS: ATTEND Surgery | DX: J93.9 Pneumothorax, unspecified (principal) | CPT/HCPCS: 71020 ==

== ENCOUNTER 2016-06-10 10:55 | Day surgery (SDC) | payer BC ==
[2016-06-10 12:21] VITALS: BP 111/80
[2016-06-10] MEDS ORDERED: NORMAL SALINE 1000 ML 1,000 ML IV PRN (13:42)
[2016-06-10] MEDS ORDERED: OXYCODONE-ACETAMINOPHEN 5-325 MG TABLET PO PRN (13:44)
--- NOTE | 2016-06-10 17:03 | DISCHARGE SUMMARY E ---
Discharge Summary NAME: ILAN SHI : 1985 AGE: 31Y ADMITTED: 06/10/2016 DISCHARGED: 06/10/2016 DISCHARGE DIAGNOSIS: Persistent left pneumothorax with need for video-assisted thorascopic surgery with pleurodesis for recurrent pneumothorax. HOSPITAL COURSE: This 31-year-old female is known to me as on 05/19/2016, she presented to the emergency room with a spontaneous left pneumothorax. The ER physician had placed a chest pain which did not result in full expansion and I placed a Heimlich chest tube in the second intercostal space anteriorly at that time. The patient subsequently was managed by Dr. Hatfield and has had 2 other chest tubes placed and removed in the interim. The patient was sent home with a chest tube with a Heimlich valve, but returned to his office today with recurrent spontaneous pneumothorax. The patient was admitted to the hospital and it was thought that placing her on suction would relieve her pneumothorax, which it did not and was unsuccessful. The patient is being transferred to [facility] and therefore, it was my intention to place a second chest tube prior to transfer. Just before transfer, again it was noted that the patient's chest tube on suction did not resolve the pneumothorax and it was my decision to place a second chest tube in the left anterior chest wall in the second intercostal space. A Heimlich chest tube was placed and subsequent chest x-ray showed full expansion of the lung. The Pleur-evac showed air leak, indicating that it was in good position as the prior chest tube did not. There was good fluctuation as well. DICTATING PHYSICIAN: YVETTE WILSON M.D. [id number] PHY#: [id number] ID: [id number] JOB#: [id number] ACCT: [id number] cc:Kwan NAVAS M.D. >
--- NOTE | 2016-06-10 17:38 | OPERATIVE REPORT E ---
Operative Report NAME: ILAN SHI : 1985 AGE: 31Y DATE OF SURGERY: 06/10/2014 ROOM: 421 PREOPERATIVE DIAGNOSIS: Persistent left pneumothorax. POSTOPERATIVE DIAGNOSIS: Persistent left pneumothorax. OPERATION: Insertion of anterior Heimlich chest tube through the second intercostal space. SURGEON: YVETTE WILSON M.D. ANESTHESIA: Local with 1% Xylocaine. COMPLICATIONS: None. CONDITION: Stable. INDICATIONS FOR PROCEDURE: This 31-year-old female who is known to me as on 05/19, I saw her in the emergency room and placed an anterior Heimlich chest tube when a lateral large chest tube did not relieve her large left pneumothorax. The patient now comes back to the hospital from Dr. Hatfield's office because of recurrent pneumothorax. The chest tube that was in place, which appeared to be a #20 chest tube, was connected to suction in the hope that this would relieve her pneumothorax but did not. The patient is being transported to [facility] for VATS, or video-assisted thoracoscopic surgery, and pleurodesis and needs expansion of her lung prior to the transfer. Chest x-ray done after placing the patient on suction showed no change in the pneumothorax, and this is the indication for a second chest tube. PROCEDURE: After appropriate consent was obtained, the patient's left chest wall was prepped and draped in the usual sterile manner. Timeout was achieved and then the third rib midclavicular line was identified. This area was prepped and draped, and then local anesthesia was injected directly onto the skin and subcutaneous tissue over the third rib, and the *------* was also injected. We then made a stab wound incision just over the third rib on the left in the midclavicular line. Incision was carried through skin to subcutaneous tissue, and then the Heimlich chest tube was inserted through the stab wound, and the Heimlich chest tube was then inserted into the second intercostal space on top of the superior surface of the left third rib in the midclavicular line. Upon inserting the Heimlich chest tube and connecting it to the Pleur-evac, we noted an air leak, but there was good fluctuation in the Pleur-evac indicating the presence of a catheter in the pleural space. A portable chest x-ray was done which revealed full expansion of her lung. The Heimlich chest tube was secured to the chest wall in the usual manner and covered with Band-Aids. The patient is now being transferred to [facility] for video-assisted thoracoscopic surgery and pleurodesis. DICTATING PHYSICIAN: YVETTE WILSON M.D. [id number] PHY#: [id number] ID: [id number] JOB#: [id number] ACCT: [id number] cc:YVETTE WILSON M.D. >
== END 2016-06-10 16:43 | disposition short-term general hospital (02) ==
LOC: OROUT 10:55 → 4W 15:58 → UNDOADMIN 15:58 → EDSTATUS 16:06 → OROUT 16:06 → 4W 16:09 → OROUT 16:09
PROVIDERS: ATTEND Surgery
PROC: 0W9B00Z Drainage of Left Pleural Cavity with Drainage Device, Open Approach (ICD-10-PCS; principal; 2016-06-10)
DX: J93.9 Pneumothorax, unspecified (principal); J90 Pleural effusion, not elsewhere classified; J98.19 Other pulmonary collapse; F43.10 Post-traumatic stress disorder, unspecified; F31.30 Bipolar disorder, current episode depressed, mild or moderate severity, unspecified; F17.210 Nicotine dependence, cigarettes, uncomplicated
CPT/HCPCS: 71010

== ENCOUNTER → 2016-06-10 | Outpatient (CLI) | payer BC | LOC: RAD 09:29 | PROVIDERS: ATTEND Surgery | DX: J93.9 Pneumothorax, unspecified (principal) | CPT/HCPCS: 71020 ==

== ENCOUNTER 2017-02-14 10:13 | Emergency (ER) | payer SELFPAY ==
[2017-02-14] MEDS ORDERED: NORMAL SALINE 1000 ML 1,000 ML IV PRN (10:38)
--- NOTE | 2017-02-14 10:40 | ER Document Report ---
ED Medical Screen (RME) - General Chief Complaint: Chest Pain Stated Complaint: CHEST PAIN Time Seen by Provider: 02/14/17 10:34 Notes: Patient presents with severe chest pain since 4 AM. She states it is central and right-sided and goes to her back. She states she has had a previous pneumothorax and required a chest tube. She denies any history of cardiac disease. She states she does not feel short of breath currently. EKG shows diffuse ST elevation but no evidence of reciprocal depression. TRAVEL OUTSIDE OF THE [place] IN LAST 30 DAYS: No - Related Data Allergies/Adverse Reactions: No Known Allergies Allergy (Verified 02/14/17 10:14) Past Medical History Pulmonary Medical History: Reports: Hx Bronchitis Renal/ Medical History: Denies: Hx Peritoneal Dialysis Psychiatric Medical History: Reports: Hx Bipolar Disorder, Hx Depression Past Surgical History: Reports: Hx Tonsillectomy Physical Exam - Vital signs Vitals: Temp Pulse Resp BP Pulse Ox 98.5 F 96 24 H 133/94 H 99 02/14/17 10:14 02/14/17 10:14 02/14/17 10:14 02/14/17 10:14 02/14/17 10:14 Course - Vital Signs Vital signs: Temp Pulse Resp BP Pulse Ox 98.5 F 96 24 H 133/94 H 99 02/14/17 10:14 02/14/17 10:14 02/14/17 10:14 02/14/17 10:14 02/14/17 10:14
[2017-02-14 11:04] LABS: ABSOLUTE LYMPHOCYTES (AUTO) 1.1 10^3/uL (0.5-4.7); ABSOLUTE MONOCYTES (AUTO) 0.6 10^3/uL (0.1-1.4); BASOPHILS % (AUTO) 0.4 % (0-2); EOSINOPHILS % (AUTO) 0.2 % (0-6); HEMATOCRIT 37.9 % (36.0-47.0); HGB HCT DIFFERENCE 1.1; LYMPHOCYTES % (AUTO) 15.7 % (13-45); MEAN CORPUSCULAR HGB CONC 34.3 g/dL (32.0-36.0); MEAN CORPUSCULAR VOLUME 93 fl (80-97); MONOCYTES % (AUTO) 9.2 % (3-13); RED BLOOD COUNT 4.07 10^6/uL (3.72-5.28); RED CELL DISTRIBUTION WIDTH 14.2 % (11.5-14.0); SEGMENTED NEUTROPHILS % (AUTO) 74.5 % (42-78); WHITE BLOOD COUNT 6.7 10^3/uL (4.0-10.5)
[2017-02-14] MEDS ORDERED: ASPIRIN 325 MG TABLET PO ONE (11:25)
[2017-02-14 11:28] LABS: ALANINE AMINOTRANSFERASE 30 U/L (9-52); ALBUMIN 4.3 g/dL (3.5-5.0); ALKALINE PHOSPHATASE 68 U/L (38-126); ANION GAP 13 (5-19); ASPARTATE AMINO TRANSFERASE 42 U/L (14-36); BILIRUBIN,DIRECT 0.4 mg/dL (0.0-0.4); BILIRUBIN,TOTAL 0.7 mg/dL (0.2-1.3); BLOOD UREA NITROGEN 7 mg/dL (7-20); CALCIUM 9.6 mg/dL (8.4-10.2); CARBON DIOXIDE 20 mmol/L (22-30); CHLORIDE 107 mmol/L (98-107); CREATINE KINASE 180 U/L (30-135); CREATININE RESULT 0.56 mg/dL (0.52-1.25); GLUCOSE 83 mg/dL (75-110); SODIUM 139.8 mmol/L (137-145); TOTAL PROTEIN 7.5 g/dL (6.3-8.2)
--- NOTE | 2017-02-14 11:29 | RADIOLOGY REPORT (SQ) ---
EXAM DESCRIPTION: CHEST PA/LAT COMPLETED DATE/TIME: 02/14/2017 11:08 am REASON FOR STUDY: cp/hx ptx COMPARISON: 06/10/2016 EXAM PARAMETERS: NUMBER OF VIEWS: two views TECHNIQUE: Digital Frontal and Lateral radiographic views of the chest acquired. RADIATION DOSE: NA LIMITATIONS: none FINDINGS: LUNGS AND PLEURA: Surgical suture is present left upper lung field. There is no infiltrat e or effusion. There is no mass. MEDIASTINUM AND HILAR STRUCTURES: No masses or contour abnormalities. HEART AND VASCULAR STRUCTURES: Heart normal size. No evidence for failure. BONES: No acute findings. HARDWARE: None in the chest. OTHER: No other significant finding. IMPRESSION: Surgical changes with no acute cardiopulmonary disease. TECHNICAL DOCUMENTATION: JOB ID: [id number] [email or web address]- All Rights Reserved
--- NOTE | 2017-02-14 11:30 | ER Document Report ---
ED Cardiac - General Chief Complaint: Chest Pain Stated Complaint: CHEST PAIN Time Seen by Provider: 02/14/17 10:34 Information source: Patient Notes: 31-year-old female presents today with the onset around 4 AM of waking up with some right-sided chest pain that now radiates to her right shoulder and back. She denies any nausea, vomiting, fevers, shortness of breath, fevers, calf pain or leg swelling, recent trips or travel. Patient does have a history of a spontaneous pneumothorax this past April that required a chest tube as well as supposedly a bleb removal at an outside facility. TRAVEL OUTSIDE OF THE [place] IN LAST 30 DAYS: No - HPI Patient complains to provider of: Chest pain Was the onset of pain: Gradual Is the pain a: New problem Chest pain location: Other - See above Quality of pain: Other - See above Chest pain radiation location: denies: None - See above Severity now: Mild Severity at worst: Moderate Pain level currently: 1 Cardiac risk factors: None Positive cardiac history: No Associated symptoms: Other - See above Exacerbated by: Denies Relieved by: Nothing - Related Data Allergies/Adverse Reactions: No Known Allergies Allergy (Verified 02/14/17 10:14) Past Medical History - General Information source: Patient - Social History Smoking Status: Former Smoker Cigarette use (# per day): No Chew tobacco use (# tins/day): No Smoking Education Provided: No Frequency of alcohol use: None Family History: Reviewed & Not Pertinent Patient has suicidal ideation: No Patient has homicidal ideation: No Pulmonary Medical History: Reports: Hx Bronchitis Renal/ Medical History: Denies: Hx Peritoneal Dialysis Psychiatric Medical History: Reports: Hx Bipolar Disorder, Hx Depression Past Surgical History: Reports: Hx Tonsillectomy Review of Systems - Review of Systems Constitutional: denies: Fever EENT: denies: Eye discharge, Nose discharge Cardiovascular: denies: Palpitations Respiratory: denies: Cough, Hemoptysis, Short of breath Gastrointestinal: denies: Vomiting Genitourinary: denies: Dysuria Musculoskeletal: denies: Leg swelling Skin: Other - no hives. denies: Rash Neurological/Psychological: Other - no slurred speech -: Yes All other systems reviewed and negative Physical Exam - Vital signs Vitals: Temp Pulse Resp BP Pulse Ox 98.5 F 96 24 H 133/94 H 99 02/14/17 10:14 02/14/17 10:14 02/14/17 10:14 02/14/17 10:14 02/14/17 10:14 Notes: Reviewed vital signs and nursing note as charted by RN. CONSTITUTIONAL: Alert and oriented and responds appropriately to questions. Well -appearing; well-nourished HEAD: Normocephalic; atraumatic EYES: PERRL; Conjunctivae clear, sclerae non-icteric ENT: Normal nose; no rhinorrhea; moist mucous membranes; pharynx without lesions noted NECK: Supple without meningismus; non-tender CARD: Regular rate and rhythm; no murmurs RESP: Normal chest excursion without splinting or tachypnea; breath sounds clear and equal bilaterally; no wheezes, no rhonchi, no rales ABD/GI: Normal bowel sounds; non-distended; soft, non-tender BACK: The back appears normal and is non-tender to palpation, there is no CVA tenderness EXT: Normal ROM in all joints; non-tender to palpation; no cyanosis, no effusions, no edema SKIN: Normal color for age and race; warm; dry; good turgor; capillary refill < 2 seconds; no acute lesions noted NEURO: Moves all extremities equally; Motor and sensory function intact PSYCH: The patient's mood and manner are appropriate. Grooming and personal hygiene are appropriate. Course - Re-evaluation Re-evalutation: 02/14/17 11:37 Given the above history and physical examination and EKG, x-ray of the chest, and a cardiac panel has been ordered. Patient's vital signs are stable with a saturation of 99% with a heart rate of 96. I believe dissection, PE, and ACS to be unlikely. Concern about possible repeat pneumothorax. EKG shows a heart rate of 83, normal sinus rhythm, normal axis, very minimal ST elevation with no reciprocal changes in leads II, V3 through V6. Some of these elevations are less than 1 mm. Very minimal UT depression in those leads. 02/14/17 11:59 Chest x-ray shows normal heart, normal mediastinum, no fractures, normal lung alvarez, no pneumothorax. 02/14/17 12:45 Labs as recorded. Vital signs are stable. Normal troponin. Normal glucose. Pain is improved. Given the history and physical examination with the EKG as recorded, with no pneumothorax present, with extremely low pretest probability for PE or aortic dissection, I will discharge the patient home with strict return precautions, cardiology follow-up, and instructions for Motrin. Patient understands these instructions and promises to return with any new or worrisome symptoms. 02/14/17 13:38 Repeat EKG shows a heart of 85, normal sinus rhythm, normal axis, no obvious signs of ST elevation or pericarditis at this time. Given the uncertainty of the diagnosis I will start the patient on Motrin alone without the colchicine. Strict return precautions will be provided. I will also provide outpatient cardiology follow-up. - Vital Signs Vital signs: Temp Pulse Resp BP Pulse Ox 98.5 F 96 24 H 133/94 H 99 02/14/17 10:14 02/14/17 10:14 02/14/17 10:14 02/14/17 10:14 02/14/17 10:14 - Laboratory Result Diagrams: 02/14/17 10:51 02/14/17 10:51 Laboratory results interpreted by me: 02/14/17 02/14/17 10:51 10:51 RDW 14.2 H Carbon Dioxide 20 L AST 42 H Creatine Kinase 180 H Discharge - Discharge Clinical Impression: Chest pain Qualifiers: Chest pain type: unspecified Qualified Code(s): R07.9 - Chest pain, unspecified Condition: Good Disposition: HOME, SELF-CARE Additional Instructions: Comeback immediately with any increased pain, change in location or quality of pain, calf pain or leg swelling, fevers or vomiting, or any other acute problems. Please make sure that you follow-up with your primary doctor with the applications packager as we have discussed. Prescriptions: Ibuprofen [Motrin 600 Mg Tablet] 600 mg PO Q6H PRN #30 tablet PRN Reason: for pain Referrals: KEATON PONCE MD [EMERITUS] - Follow up as needed
[2017-02-14 11:39] LABS: CREATINE KINASE MB 0.47 ng/mL (<4.55)
[2017-02-14 11:40] LABS: TROPONIN I < 0.012 ng/mL
--- NOTE | 2017-02-14 12:55 | EKG REPORT ---
SEVERITY:- ABNORMAL ECG - SINUS RHYTHM ST ELEVATION SUGGESTS NORMAL VARIANT, CLINICAL CORRELATION AND LABS NEEDED. : Confirmed by: Miguel Cornejo MD 14-Feb-2017 12:54:07
[2017-02-14 13:56] VITALS: BP 115/86
--- NOTE | 2017-02-14 18:31 | EKG REPORT ---
SEVERITY:- NORMAL ECG - SINUS RHYTHM : Confirmed by: Miguel Cornejo MD 14-Feb-2017 18:29:47
== END 2017-02-14 13:56 | disposition home or self-care (01) ==
LOC: ER 10:13
DX: R07.9 Chest pain, unspecified (principal)
CPT/HCPCS: 93005; 99285; 96360; 36415; 82553; 82550; 85025; 80053; 84484; 71020; 93010; J7030

== ENCOUNTER → 2017-05-02 | Outpatient (CLI) | payer SELFPAY ==
--- NOTE | 2017-05-02 14:44 | RADIOLOGY REPORT (SQ) ---
EXAM DESCRIPTION: U/S [id number] TRNABD 1GES W/ODOP COMPLETED DATE/TIME: 05/02/2017 1:48 pm REASON FOR STUDY: ENCOUNTER FOR SUPERVISION OF OTHER NORMAL , FIRST TRIMESTER (Z34.8 Z34.81 ENCOUNTER FOR SUPRVSN OF NORMAL , FIRST TRIM COMPARISON: None. TECHNIQUE: Transabdominal static and realtime grayscale images acquired of the pelvis. Additional se lected spectral and color Doppler images recorded. All images stored on PACs. bHCG: Not applicable. LIMITATIONS: None. FINDINGS: FETUS: EGA: 11 week 2 day. ANUSHKA: 11/19/2017. EFW: Not applicable. FHR: 171 beats per minute. SHAMIKA: Adequate amount. CERVICAL LENGTH: 3.0 cm. Closed. UTERUS: No masses. RIGHT ADNEXA: Ovary not identified. No adnexal free fluid. No adnexal masses. LEFT ADNEXA: Ovary not identified. No adnexal free fluid. No adnexal masses. FREE FLUID: None. OTHER: No other significant finding. IMPRESSION: LIVING INTRAUTERINE . ESTIMATED GESTATIONAL AGE:11 WEEK 2 DAY. Trimester of : First trimester - 0 to 13 weeks. TECHNICAL DOCUMENTATION: JOB ID: [id number] [employer]- All Rights Reserved
== END ==
LOC: RAD 12:15
PROVIDERS: ATTEND Nurse Practitioner Women's Health
DX: Z34.81 Encounter for supervision of other normal pregnancy, first trimester (principal)
CPT/HCPCS: 76801

== ENCOUNTER → 2017-06-28 | Outpatient (CLI) | payer SELFPAY ==
--- NOTE | 2017-06-28 16:26 | RADIOLOGY REPORT (SQ) ---
EXAM DESCRIPTION: U/S OB 14+ TRNABD 1GES W/O DOP COMPLETED DATE/TIME: 06/28/2017 1:55 pm REASON FOR STUDY: ENCOUNTER FOR SUPERVISION OF OTHER NORNAL , SECOND TRIMESTER Z34.82 ENCO UNTER FOR SUPRVSN OF NORMAL , SECOND TRI COMPARISON: None. TECHNIQUE: Static and Dynamic grayscale imaging performed of gravid uterus using transabdominal appr oach. Additional selected color Doppler and spectral images recorded. All stored on PACS. LIMITATIONS: None. FINDINGS: EGA: 18 weeks 6 days ANUSHKA: 11/23/2017 EFW: 272 grams PERCENTILE: Not applicable. Fetus less than or equal to 20 weeks gestation. SHAMIKA: 8.0 PLACENTA: Anterior GRADE: I PRESENTATION: Cephalic. ANATOMY: HEART RATE: 153 Beats per minute. FOUR CHAMBER HEART: Visualized. THREE VESSEL CORD: Yes. CORD INSERTION: Visualized. KIDNEYS AND BLADDER: Visualized. Appear normal. STOMACH: Visualized. Appears normal. SPINE: Normal as visualized. BRAIN AND LATERAL VENTRICLES: Visualized. Appear normal. OTHER: No other significant finding. MATERNAL ADNEXA: Maternal ovaries not visualized. CERVICAL LENGTH: 4.1 cm Closed. OTHER: No other significant finding. IMPRESSION: LIVING INTRAUTERINE . ESTIMATED GESTATIONAL AGE 18 weeks 6 days. NO VISUALIZED ANOMALIES. Trimester of : Second trimester - 13 weeks 1 day to 27 weeks 6 days. TECHNICAL DOCUMENTATION: JOB ID: [id number] [employer]- All Rights Reserved
== END ==
LOC: RAD 12:35
PROVIDERS: ATTEND Nurse Practitioner Women's Health
DX: Z34.82 Encounter for supervision of other normal pregnancy, second trimester (principal)
CPT/HCPCS: 76805

== ENCOUNTER 2017-11-16 09:44 | Inpatient (IN) | payer MEDICAID ==
[2017-11-16] MEDS ORDERED: RINGERS SOLUTION,LACTATED 1,000 ML IV PRN (09:49)
[2017-11-16] MEDS ORDERED: RINGERS SOLUTION,LACTATED 1,000 ML IV ONE (09:49)
[2017-11-16] MEDS ORDERED: OXYTOCIN/NORMAL SALINE 20 UNIT/1,000 ML RTUINJ IV PRN ×2 (09:51→17:31)
[2017-11-16 10:23] LABS: ABSOLUTE EOSINOPHILS # (AUTO) 0.4 10^3/uL (0.0-0.6); ABSOLUTE LYMPHOCYTES (AUTO) 1.8 10^3/uL (0.5-4.7); ABSOLUTE MONOCYTES (AUTO) 0.9 10^3/uL (0.1-1.4); ABSOLUTE NEUT (AUTO) 6.9 10^3/uL (1.7-8.2); BASOPHILS % (AUTO) 0.4 % (0-2); EOSINOPHILS % (AUTO) 4.3 % (0-6); HEMOGLOBIN 11.1 g/dL (12.0-15.5); LYMPHOCYTES % (AUTO) 17.9 % (13-45); MEAN CORPUSCULAR HEMOGLOBIN 30.3 pg (27.0-33.4); MEAN CORPUSCULAR HGB CONC 33.7 g/dL (32.0-36.0); MEAN CORPUSCULAR VOLUME 90 fl (80-97); MONOCYTES % (AUTO) 9.2 % (3-13); PLATELET COUNT 252 10^3/uL (150-450); RED BLOOD COUNT 3.67 10^6/uL (3.72-5.28); SEGMENTED NEUTROPHILS % (AUTO) 68.2 % (42-78); TOTAL CELLS COUNTED % (AUTO) 100 %; WHITE BLOOD COUNT 10.1 10^3/uL (4.0-10.5)
[2017-11-16] MEDS ORDERED: DEXTROSE 5%-LACTATED RINGERS 300 ML IV PRN (10:24)
[2017-11-16 10:31] LABS: APPEARANCE,URINE SLIGHTLY-CLOUDY; BILIRUBIN,URINE NEGATIVE (NEGATIVE); COLOR,URINE YELLOW; GLUCOSE, URINE NEGATIVE (NEGATIVE); KETONES,URINE NEGATIVE (NEGATIVE); LEUKOCYTE ESTERASE,URINE MODERATE (NEGATIVE); NITRITE,URINE NEGATIVE (NEGATIVE); PROTEIN,URINE NEGATIVE (NEGATIVE); URINE SPECIFIC GRAVITY 1.011; UROBILINOGEN,URINE NEGATIVE mg/dL (<2.0)
[2017-11-16] MEDS ORDERED: OXYTOCIN/NORMAL SALINE 20 UNIT/1,000 ML RTUINJ ONE (10:48)
[2017-11-16] MEDS ORDERED: MISOPROSTOL 0.2 MG TABLET ONE (10:48)
[2017-11-16] MEDS ORDERED: LIDOCAINE 1% INJ-PF (10 MG/ML) 30 ML SDV ONE (10:48)
[2017-11-16 10:50] LABS: URINE AMPHETAMINES SCREEN NEGATIVE; URINE BARBITURATES SCREEN NEGATIVE; URINE BENZODIAZEPINES SCREEN NEGATIVE; URINE COCAINE SCREEN NEGATIVE; URINE MARIJUANA (THC) SCREEN NEGATIVE; URINE METHADONE SCREEN NEGATIVE; URINE PHENCYCLIDINE SCREEN NEGATIVE
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
[2017-11-16] MEDS ORDERED: PROMETHAZINE HCL 25 MG SUPP.RECT PR PRN (17:31)
[2017-11-16] MEDS ORDERED: ZOLPIDEM TARTRATE 5 MG TABLET PO PRN (17:31)
[2017-11-16] MEDS ORDERED: PROMETHAZINE HCL 25 MG TABLET PO PRN (17:31)
[2017-11-16] MEDS ORDERED: NA PHOS,M-B/NA PHOS,DI-BA (ADULT) 133 ML ENEMA PR PRN (17:31)
[2017-11-16] MEDS ORDERED: ACETAMINOPHEN 650 MG SUPP.RECT PR PRN (17:31)
[2017-11-16] MEDS ORDERED: DIPHENHYDRAMINE HCL 25 MG CAPSULE PO PRN (17:31)
[2017-11-16] MEDS ORDERED: ACETAMINOPHEN WITH CODEINE #3 TABLET PO PRN ×2 (17:31)
[2017-11-16] MEDS ORDERED: PSEUDOEPHEDRINE HCL 30 MG TABLET PO PRN (17:31)
[2017-11-16] MEDS ORDERED: GLYCERIN/WITCH HAZEL LEAF 1 EACH MED..PAD TP PRN (17:31)
[2017-11-16] MEDS ORDERED: DIPH/PERTUSS(ACELL)/TETANUS VAC/PF 0.5 ML SYR (>=10YO) IM PRN (17:31)
[2017-11-16] MEDS ORDERED: MEASLES,MUMPS&RUBELLA VACC/PF 0.5 ML VIAL SUBCUT PRN (17:31)
[2017-11-16] MEDS ORDERED: PROMETHAZINE HCL INJ 25 MG/1 ML VIAL IV PRN (17:31)
[2017-11-16] MEDS ORDERED: MAGNESIUM HYDROXIDE SUSP 30 ML UDCUP PO PRN (17:31)
[2017-11-16] MEDS ORDERED: DIBUCAINE 1% OINTMENT 28 GM TP PRN (17:31)
[2017-11-16] MEDS ORDERED: BENZOCAINE/MENTHOL AEROSOL SPRAY 56 ML TOP PRN (17:31)
--- NOTE | 2017-11-16 17:36 | Warning Signs in Babies ---
VOD Warning Signs Datetime Report Generated by N: 11/16/2017 17:36 VOD#608 -Warning Signs in Babies: Viewed with Parent(s)/Family (11/16/2017 17:35:Flory Reyes RN)
[2017-11-16] MEDS ORDERED: MISOPROSTOL 0.2 MG TABLET PR ONE (18:36)
[2017-11-16] MEDS ORDERED: FERROUS SULFATE 325 MG TABLET PO ONE (18:37)
[2017-11-16] MEDS ORDERED: DOCUSATE SODIUM 100 MG CAPSULE ONE (18:37)
[2017-11-16] MEDS: FERROUS SULFATE 325 MG TABLET PO SCH (18:38)
[2017-11-16] MEDS: DOCUSATE SODIUM 100 MG CAPSULE PO SCH (18:38)
[2017-11-16] MEDS: FAMOTIDINE 20 MG TABLET PO SCH (23:01)
[2017-11-16] MEDS: IBUPROFEN 800 MG TABLET PO SCH (23:01)
[2017-11-17] MEDS: IBUPROFEN 800 MG TABLET PO SCH ×3 (05:38→21:43)
[2017-11-17 08:11] LABS: HEMATOCRIT 29.9 % (36.0-47.0); MEAN CORPUSCULAR HEMOGLOBIN 30.1 pg (27.0-33.4); MEAN CORPUSCULAR HGB CONC 33.4 g/dL (32.0-36.0); MEAN CORPUSCULAR VOLUME 90 fl (80-97); PLATELET COUNT 176 10^3/uL (150-450); RED BLOOD COUNT 3.32 10^6/uL (3.72-5.28); RED CELL DISTRIBUTION WIDTH 13.6 % (11.5-14.0); WHITE BLOOD COUNT 13.5 10^3/uL (4.0-10.5)
[2017-11-17] MEDS: PRENATAL VITAMIN W DHA CAPSULE PO SCH (09:44)
[2017-11-17] MEDS: SENNOSIDES/DOCUSATE 8.6-50 MG 1 EACH TABLET PO SCH (09:45)
[2017-11-17] MEDS: FERROUS SULFATE 325 MG TABLET PO SCH ×2 (09:45→17:23)
[2017-11-17] MEDS: DOCUSATE SODIUM 100 MG CAPSULE PO SCH ×2 (09:45→17:23)
[2017-11-17] MEDS: FAMOTIDINE 20 MG TABLET PO SCH ×2 (09:45→21:42)
--- NOTE | 2017-11-17 11:05 | PDOC PROGRESS REPORT ---
Subjective-OB Progress Note for:: 11/17/17 Physical Exam (OB) Vital Signs: Temp Pulse Resp BP Pulse Ox 98.3 F 63 16 111/69 95 11/17/17 07:46 11/17/17 07:46 11/17/17 07:46 11/17/17 07:46 11/17/17 07:46 Intake & Output 11/16/17 11/17/17 11/18/17 06:59 06:59 06:59 Weight 72.3 kg - PIH/Pre-Eclampsia DTR's: 1 + Clonus: Negative Headache: Absent Epigastric Pain: No Visual Changes: No - Lochia Lochia Amount: Small 10-25 ml Lochia Color: Rubra/Red - Abdomen Description: Soft, Round Hernia Present: No Bowel Sounds: Normoactive Flatus Presence: Present Stool: No Fundal Description: Firm, Midline Fundal Height: u/u - u/2 Objective-Diagnostic Laboratory: 11/17/17 07:34 11/16/17 11/17/17 10:00 07:34 WBC 13.5 H RBC 3.32 L Hgb 10.0 L Hct 29.9 L MCV 90 MCH 30.1 MCHC 33.4 RDW 13.6 Plt Count 176 Blood Type O POSITIVE Antibody Screen NEGATIVE
[2017-11-17 20:31] VITALS: BP 113/54
[2017-11-18] MEDS: IBUPROFEN 800 MG TABLET PO SCH (06:01)
[2017-11-18] MEDS: FAMOTIDINE 20 MG TABLET PO SCH (09:20)
[2017-11-18] MEDS: DOCUSATE SODIUM 100 MG CAPSULE PO SCH (09:20)
[2017-11-18] MEDS: PRENATAL VITAMIN W DHA CAPSULE PO SCH (09:20)
[2017-11-18] MEDS: SENNOSIDES/DOCUSATE 8.6-50 MG 1 EACH TABLET PO SCH (09:20)
[2017-11-18] MEDS: FERROUS SULFATE 325 MG TABLET PO SCH (09:20)
--- NOTE | 2017-11-18 09:47 | PDOC PROGRESS REPORT ---
Subjective-OB Progress Note for:: 11/18/17 Subjective: Ready to go home. Physical Exam (OB) Vital Signs: Temp Pulse Resp BP Pulse Ox 97.6 F 61 18 113/54 L 98 11/17/17 19:49 11/17/17 19:49 11/17/17 19:49 11/17/17 19:49 11/17/17 19:49 Intake & Output 11/17/17 11/18/17 11/19/17 06:59 06:59 06:59 Intake Total 1000 Balance 1000 Weight 72.3 kg - PIH/Pre-Eclampsia DTR's: 1 + Clonus: Negative Headache: Absent Epigastric Pain: No Visual Changes: No - Lochia Lochia Amount: Scant < 10 ml Lochia Color: Rubra/Red - Abdomen Description: Soft, Round Hernia Present: No Bowel Sounds: Normoactive Flatus Presence: Present Stool: Yes Fundal Description: Firm, Midline Fundal Height: u/u - u/2 Objective-Diagnostic Laboratory: 11/17/17 07:34
--- NOTE | 2017-11-18 09:55 | PDOC DISCHARGE SUMMARY ---
Final Diagnosis Discharge Date: 11/18/17 - Final Diagnosis (1) Encounter for induction of labor Is this a current diagnosis for this admission?: Yes (2) Multiple mental health issues Is this a current diagnosis for this admission?: Yes (3) PROM (premature rupture of membranes) Is this a current diagnosis for this admission?: Yes (4) Is this a current diagnosis for this admission?: Yes (5) Smoker Is this a current diagnosis for this admission?: Yes Discharge Data - Discharge Medication Prescriptions: Ferrous Sulfate [Feosol 325 mg Tablet] 325 mg PO BID #60 tablet Home Medications: Diphenhydramine HCl [Benadryl] 25 mg PO ASDIR PRN 11/16/17 No122/Iron/Folic Acid [ Multi Tablet] 1 tab PO DAILY 11/16/17 Ferrous Sulfate [Feosol 325 mg Tablet] 325 mg PO BID #60 tablet 11/18/17 Gestational Age: 39.4 wks Reason(s) for Admission: Induction of Labor, PROM Procedures: Ultrasound Intrapartum Procedure(s): Spontaneous Vaginal Delivery - [place] Data Baby 1 Female at 1 minute: 9 at 5 minutes: 9 Weight: 3.005 kg Home with Mother: Yes Complications: No - Diagnosis Test Laboratory: Temp Pulse Resp BP Pulse Ox 97.6 F 61 18 113/54 L 98 11/17/17 19:49 11/17/17 19:49 11/17/17 19:49 11/17/17 19:49 11/17/17 19:49 11/16/17 11/16/17 11/17/17 09:59 10:00 07:34 RBC 3.67 L 3.32 L Hgb 11.1 L 10.0 L Hct 33.0 L 29.9 L Urine Opiates Screen NEGATIVE - Discharge information/Instructions Discharge Activity: Activity As Tolerated, Balance Activity w/Rest, Pelvic Rest , Slowly Increase Activity, No tub bath Discharge Diet: Regular Disposition: HOME, SELF-CARE Follow up with: [facility] in: 4, Weeks
--- NOTE | 2017-12-12 12:46 | Delivery Summary ---
Del Sum A-C Datetime Report Generated by CPN: 12/12/2017 12:46 DELIVERY PERSONNEL DELIVERY PERSONNEL: [id number] Delivery Doctor:: Kusum Guadalupe CNM Nurse Er Physician Certified:: Kusum Guadalupe CNM Labor and Delivery Nurse:: Flory Reyes RNcurb builder Nurse:: CRISTELA Ellis Student Observers:: Phyllis Sheikh RN- Nurse Resident Insemination Worker/GRID MOLDER: Vanesa Baltazar CNA II Insemination Worker/GRID MOLDER: Tanika Carreon CORE LAYING MACHINE OPERATOR MATERNAL INFORMATION Delivery Anesthesia: None Medications After Delivery: Pitocin Bolus-Please Comment; Other-Please Comment Meds After Delivery Comment: Pitocin 20 units in 1000 ml nss open for bolus Cytotec 1000 mg per rectum Maternal Complications: None Provider Comments: JAZMINE VIABLE FEMALE WITH SPONTANEOUS CRY. CORD DOUBLE CLAMPED AND CUT. SPONTANEOUS PLACENTA INTACT WITH 3VC. NO LACERATIONS. MOTHER AND INFANT STABLE IN L_D #6. LABOR SUMMARY EDC: 11/19/2017 00:00 No. Babies in Womb: 1 Attempted: No Labor Anesthesia: None LABOR INFORMATION Reason for Induction: Not Applicable Onset of Labor: 11/16/2017 16:00 Complete Dilatation: 11/16/2017 17:12 Oxytocin: Augmentation Group B Beta Strep: Negative Antibiotics # of Doses: 0 Steroids Given: None Reason Steroids Not Administered: Not Applicable MEMBRANES Membranes Rupture Method: Spontaneous Rupture of Membranes: 11/16/2017 08:25 Length of Rupture (hr): 8.83 Amniotic Fluid Color: Clear Amniotic Fluid Amount: Scant Amniotic Fluid Odor: Normal STAGES OF LABOR Stage 1 hr: 1 Stage 1 min: 12 Stage 2 hr: 0 Stage 2 min: 3 Stage 3 hr: 0 Stage 3 min: 5 Total Time in Labor hr: 1 Total Time in Labor min: 20 VAGINAL DELIVERY Laceration #1: None Laceration Extension #1: N/A Laceration Repair: Not Applicable Sponge Count Correct: N/A CSECTION DELIVERY Primary Indication: N/A Secondary Indication: N/A CSection Incidence: N/A Labor: N/A Elective: N/A CSection Incision: N/A BABY A INFORMATION Infant Delivery Date/Time: 11/16/2017 17:15 Method of Delivery: Vaginal Method of Delivery: Vaginal Born in Route : No : N/A Forceps: N/A Vacuum Extraction: N/A Shoulder Dystocia : No PRESENTATION/POSITION BABY A Presentation: Cephalic Cephalic Presentation: Vertex Vertex Position: Left Occipital Anterior Breech Presentation: N/A PLACENTA INFORMATION BABY A Placenta Delivery Time : 11/16/2017 17:20 Placenta Method of Delivery: Spontaneous Placenta Method of Delivery: Spontaneous Placenta Status: Delivered SCORES BABY A Heart Rate 1 min: >100 bpm Resp Effort 1 min: Good Cry Reflex Irritability 1 min: Cough or Sneeze or Pulls Away Muscle Tone 1 min: Active Motion Color 1 min: Body [place], Extremities Blue Resuscitation Effort 1 min: Tactile Stimulation SCORE 1 MIN: 9 Heart Rate 5 min: >100 bpm Resp Effort 5 min: Good Cry Reflex Irritability 5 min: Cough or Sneeze or Pulls Away Muscle Tone 5 min: Active Motion Color 5 min: Body [place], Extremities Blue Resuscitation Effort 5 min: N/A SCORE 5 MIN: 9 Resuscitation Effort 10 min: N/A INFORMATION BABY A Gestational Age at Delivery: 39.4 Gestational Status: Full Term- 39- 40.6 Weeks Infant Outcome : Liveborn Condition : Stable Infant Sex: Female Sex: Female IDENTIFICATION BABY A Infant Verification Date/Time: 11/16/2017 17:27 ID Band Number: [id number] Mother's Name Verified: Yes Infant RN Verifying Infant: Monica Stephen RN, Mady Jean-Paul, US WEIGHT/LENGTH BABY A Birthweight (gm): 3000 Weight (lb): 6 Weight (oz): 10 Length (in): 19.75 Length (cm): 50.17 CORD INFORMATION BABY A No. Cord Vessels: 3 Nuchal Cord : N/A Cord Blood Taken: Yes-For Eval (Mom's Blood Type - or O+) Infant Suction: None ASSESSMENT BABY A Infant Complications: None Physical Findings at Delivery: Within Normal Limits Respirations: Appears Normal Skin to Skin: Yes Set Up Worker/ALS Called : No Care By: D bellavance RNC Transferred To: Remains with Mother BABY B INFORMATION : N/A SIGNATURES Assignment: Romel Soto MD Signature: with User ID: [email or web address] : with User ID: [email or web address] : I was personally available for consultation and serving as supervising physician for the MLP. : I was personally available for consultation and serving as supervising physician for the MLP.
== END 2017-11-18 11:37 | disposition home or self-care (01) | DRG 775 ==
LOC: LR 09:53 → 2S 19:54
PROVIDERS: ADMIT Obstetrics & Gynecology Gynecology; ATTEND Obstetrics & Gynecology Gynecology
PROC: 10E0XZZ Delivery of Products of Conception, External Approach (ICD-10-PCS; principal; 2017-11-16)
DX: O42.02 Full-term premature rupture of membranes, onset of labor within 24 hours of rupture (principal); O99.344 Other mental disorders complicating childbirth; O99.334 Smoking (tobacco) complicating childbirth; O99.314 Alcohol use complicating childbirth; F31.9 Bipolar disorder, unspecified; F43.10 Post-traumatic stress disorder, unspecified; F41.9 Anxiety disorder, unspecified; F17.210 Nicotine dependence, cigarettes, uncomplicated; F10.10 Alcohol abuse, uncomplicated; Z3A.39 39 weeks gestation of pregnancy; Z37.0 Single live birth
CPT/HCPCS: 36415; 80307; 81005; 85025; 85027; 86592; 86850; 86900; 86901; J2590; J3490

== ENCOUNTER → 2018-08-08 | Outpatient (CLI) | payer MEDICAID ==
--- NOTE | 2018-08-08 16:25 | RADIOLOGY REPORT (SQ) ---
EXAM DESCRIPTION: U/S [id number] TRNABD 1GES W/ODOP COMPLETED DATE/TIME: 08/08/2018 2:41 pm REASON FOR STUDY: ENCTR FOR SUPERVISION OF OTHER NORMAL , 1ST TRIMESTER (Z34.81) Z34.81 EN COUNTER FOR SUPRVSN OF NORMAL , FIRST TRIM COMPARISON: None. TECHNIQUE: Transabdominal static and realtime grayscale images acquired of the pelvis. Additional se lected spectral and color Doppler images recorded. All images stored on PACs. bHCG: Not applicable. CLINICAL DATES: LMP 05/10/2018. 12 weeks 6 days. LIMITATIONS: None. FINDINGS: FETUS: Single Living intrauterine . ULTRASOUND EGA: 13 weeks 5 days ULTRASOUND ANUSHKA: 02/08/2019 EFW: Not applicable less than 20 weeks. CRL: 7.7 cm. FHR: 149 beats per minute. SURVEY: Too early to assess. AMNIOTIC FLUID: Adequate amount. PLACENTA: Not yet developed due to early gestation. SUBCHORIONIC BLEED: No SIZE OF BLEED: Not applicable. UTERUS: No masses. No anomalies. CERVICAL LENGTH: 5.3 cm Closed. RIGHT ADNEXA: Ovary not seen. No adnexal free fluid. No adnexal masses. LEFT ADNEXA: Ovary not seen. No adnexal free fluid. No adnexal masses. FREE FLUID: None. OTHER: No other significant finding. IMPRESSION: LIVING INTRAUTERINE . EGA 13 weeks 5 days. Trimester of : First - 0 to 13 weeks. TECHNICAL DOCUMENTATION: JOB ID: [id number] [employer]- All Rights Reserved rev-10/13 Reading location - IP/workstation name: [email or web address]
== END ==
LOC: RAD 13:39
PROVIDERS: ATTEND Midwife
DX: Z34.81 Encounter for supervision of other normal pregnancy, first trimester (principal)
CPT/HCPCS: 76801

== ENCOUNTER 2019-02-11 00:03 | Inpatient (IN) | payer MEDICAID ==
[2019-02-11] MEDS ORDERED: RINGERS SOLUTION,LACTATED 1,000 ML IV PRN (00:37)
[2019-02-11] MEDS ORDERED: MISOPROSTOL 0.2 MG TABLET ONE (00:42)
[2019-02-11] MEDS ORDERED: OXYTOCIN/NORMAL SALINE 20 UNIT/1,000 ML RTUINJ ONE (00:42)
[2019-02-11] MEDS ORDERED: OXYTOCIN 10 UNIT/ML VIAL ONE (00:42)
[2019-02-11] MEDS ORDERED: LIDOCAINE 1% INJ-PF (10 MG/ML) 30 ML SDV ONE (00:42)
[2019-02-11 01:22] LABS: APPEARANCE,URINE CLEAR; BILIRUBIN,URINE NEGATIVE (NEGATIVE); COLOR,URINE YELLOW; GLUCOSE, URINE NEGATIVE (NEGATIVE); KETONES,URINE 25 mg/dL (NEGATIVE); LEUKOCYTE ESTERASE,URINE LARGE (NEGATIVE); NITRITE,URINE NEGATIVE (NEGATIVE); PROTEIN,URINE NEGATIVE (NEGATIVE)
[2019-02-11 01:27] LABS: ABSOLUTE BASOPHILS # (AUTO) 0.1 10^3/uL (0.0-0.2); ABSOLUTE EOSINOPHILS # (AUTO) 0.1 10^3/uL (0.0-0.6); ABSOLUTE MONOCYTES (AUTO) 0.8 10^3/uL (0.1-1.4); ABSOLUTE NEUT (AUTO) 6.7 10^3/uL (1.7-8.2); BASOPHILS % (AUTO) 0.7 % (0-2); EOSINOPHILS % (AUTO) 0.7 % (0-6); HEMOGLOBIN 11.9 g/dL (12.0-15.5); LYMPHOCYTES % (AUTO) 20.7 % (13-45); MEAN CORPUSCULAR HEMOGLOBIN 30.5 pg (27.0-33.4); MEAN CORPUSCULAR HGB CONC 33.9 g/dL (32.0-36.0); MEAN CORPUSCULAR VOLUME 90 fl (80-97); MONOCYTES % (AUTO) 8.7 % (3-13); PLATELET COUNT 217 10^3/uL (150-450); RED BLOOD COUNT 3.89 10^6/uL (3.72-5.28); RED CELL DISTRIBUTION WIDTH 14.5 % (11.5-14.0); SEGMENTED NEUTROPHILS % (AUTO) 69.2 % (42-78); TOTAL CELLS COUNTED % (AUTO) 100 %; WHITE BLOOD COUNT 9.7 10^3/uL (4.0-10.5)
--- NOTE | 2019-02-11 01:30 | Admission Physical ---
Datetime Report Generated by CPN: 02/11/2019 01:29 CURRENT ADMISSION Chief Complaint: Uterine Contractions Indication for Induction: Not Applicable Admit Impression : Term, Intrauterine ; Active Labor; Intact Membranes Admit Plan: Admit to Unit; Initiate Labor Protocol ALLERGIES Medication Allergies: No Medication Allergies: No Known Allergies (11/16/2017) Latex: No Latex Allergies OBSTETRICAL HISTORY EDC: 02/14/2019 00:00 : 4 Para: 3 Gestational Diabetes: No Rh Sensitization: No Incompetent Cervix: No TUNDE: No Infertility: No ART Treatment: No Uterine Anomaly: No IUGR: No Hx Previous C/S: No Macrosomia: No Hx Loss/Stillborn: No PIH: No Hx : No Placenta Previa/Abruption: No Depression/PP Depression: No PTL/PROM: No Post Hemorrhage: No SEE RECORDS Alcohol: No Marijuana : No Cocaine: No Other Illicit Drugs: No Cigarettes: Current Everyday Smoker. [id number] Cigarette Frequency: < 5 per day Advised to Stop: Yes Cigarette Comments: 2 a day MEDICAL HISTORY Diabetes: No Blood Transfusion: No Pulmonary Disease (Asthma, TB): No Breast Disease: No Hypertension: No Foam Machine Operator Surgery: No Heart Disease: No Hosp/Surgery: No Autoimmune Disorder: No Anesthetic Complications: No Kidney Disease: No Abnormal Pap Smear: No Neuro/Epilepsy: No Psychiatric Disorders: No Other Medical Diseases: No Hepatitis/Liver Disease: No Significant Family History: No Varicosities/Phlebitis: No Trauma/Violence : No Thyroid Dysfunction: No INFECTIOUS HISTORY Gonorrhea: No Genital Herpes: No Chlamydia: No Tuberculosis: No Syphilis: No Hepatitis: No HIV/AIDS Exposure: No Rash or Viral Illness: No HPV: No PHYSICAL EXAM General: Normal HEENT: Normal Neurologic: Normal Thyroid: Normal Heart: Normal Lungs: Normal Breast: Normal Back: Normal Abdomen: Normal Genitourinary Exam: Normal Extremities: Normal DTRs: Normal Pelvic Type: Adequate Vital Signs: Reviewed; Within Normal Limits VAGINAL EXAM Dilatation: 9 Effacement: 100 Station: -2 Contraction Comments: q 2-3 FETUS A EGA: 39.4 Monitoring: External US FHR- Baseline: 120s Variability: Moderate 6-25bpm Accelerations: 15X15 Decelerations: None FHR Category: Category I Admit Comment: presented to L_D c/o contractions which started at 2000. She reports good movement. GBS Neg. Her cervix is 9 cm. PLANS FOR LABOR AND DELIVERY Labor and Delivery: None Pain Management: None Feeding Preference: Breast Circumcision: No INFORMED CONSENT Signature: with User ID: [email or web address]
[2019-02-11 01:51] LABS: URINE AMPHETAMINES SCREEN NEGATIVE; URINE BARBITURATES SCREEN NEGATIVE; URINE BENZODIAZEPINES SCREEN NEGATIVE; URINE COCAINE SCREEN NEGATIVE; URINE MARIJUANA (THC) SCREEN NEGATIVE; URINE METHADONE SCREEN NEGATIVE; URINE PHENCYCLIDINE SCREEN NEGATIVE
[2019-02-11] MEDS ORDERED: ACETAMINOPHEN WITH CODEINE #3 TABLET ONE (02:23)
[2019-02-11] MEDS ORDERED: DIPH/PERTUSS(ACELL)/TETANUS VAC/PF 0.5 ML SYR (>=10YO) IM PRN (02:35)
[2019-02-11] MEDS ORDERED: ACETAMINOPHEN WITH CODEINE #3 TABLET PO PRN ×2 (02:35)
[2019-02-11] MEDS ORDERED: DIBUCAINE 1% OINTMENT 56 GM TP PRN (02:35)
[2019-02-11] MEDS ORDERED: OXYTOCIN/NORMAL SALINE 20 UNIT/1,000 ML RTUINJ IV PRN (02:35)
[2019-02-11] MEDS ORDERED: ZOLPIDEM TARTRATE 5 MG TABLET PO PRN (02:35)
[2019-02-11] MEDS ORDERED: BENZOCAINE/MENTHOL AEROSOL SPRAY 56 ML TOP PRN (02:35)
--- NOTE | 2019-02-11 03:26 | Delivery Summary ---
Del Sum A-C Datetime Report Generated by CPN: 02/11/2019 03:25 DELIVERY PERSONNEL DELIVERY PERSONNEL: [id number] Delivery Doctor:: Latisha Merlos MD Labor and Delivery Nurse:: Luna Seymour RNrespiratory care assistant Nurse:: Demetria Bonilla RN Nursery Nurse:: Shirley Shaw RN Production Expediter/REINFORCER: Mariana Galindo, ST MATERNAL INFORMATION Delivery Anesthesia: None Medications After Delivery: Pitocin Drip 20 Units/1000ml NSS Delivery QBL Comment: 25 ml Maternal Complications: None Provider Comments: of a viable male 0114 with an NOHEMI w/body/left foot cord x 1 presentation; APGARS 9, 9 ; no lacs LABOR SUMMARY EDC: 02/14/2019 00:00 No. Babies in Womb: 1 Attempted: No Labor Anesthesia: None LABOR INFORMATION Reason for Induction: Not Applicable Onset of Labor: 02/10/2019 23:00 Complete Dilatation: 02/11/2019 01:13 Oxytocin: N/A Group B Beta Strep: NEGATIVE Antibiotics # of Doses: 0 Antibiotics Time of Last Dose: 0 Name of Antibiotic Given: n/a Steroids Given: None Reason Steroids Not Administered: Not Applicable MEMBRANES Membranes Rupture Method: Artificial Rupture of Membranes: 02/11/2019 01:13 Length of Rupture (hr): -359.98 Amniotic Fluid Color: Light Meconium Amniotic Fluid Amount: Moderate Amniotic Fluid Odor: Normal STAGES OF LABOR Stage 1 hr: 2 Stage 1 min: 13 Stage 2 hr: -359 Stage 2 min: -59 Stage 3 hr: 360 Stage 3 min: 5 Total Time in Labor hr: 2 Total Time in Labor min: 19 VAGINAL DELIVERY Episiotomy: None Laceration #1: None Laceration Repair: Not Applicable Sponge Count Correct: Yes Sharps Count Correct: Yes CSECTION DELIVERY Primary Indication: N/A Secondary Indication: N/A CSection Incidence: N/A Labor: N/A Elective: N/A CSection Incision: N/A BABY A INFORMATION Infant Delivery Date/Time: 01/27/2019 01:14 Method of Delivery: Vaginal Born in Route : No : N/A Forceps: N/A Vacuum Extraction: N/A Shoulder Dystocia : No PRESENTATION/POSITION BABY A Presentation: Cephalic Cephalic Presentation: Vertex Vertex Position: Right Occipital Anterior Breech Presentation: N/A PLACENTA INFORMATION BABY A Placenta Delivery Time : 02/11/2019 01:19 Placenta Method of Delivery: Spontaneous Placenta Status: Delivered SCORES BABY A Heart Rate 1 min: >100 bpm Resp Effort 1 min: Good Cry Reflex Irritability 1 min: Cough or Sneeze or Pulls Away Muscle Tone 1 min: Active Motion Color 1 min: Body [place], Extremities Blue SCORE 1 MIN: 9 Heart Rate 5 min: >100 bpm Resp Effort 5 min: Good Cry Reflex Irritability 5 min: Cough or Sneeze or Pulls Away Muscle Tone 5 min: Active Motion Color 5 min: Body [place], Extremities Blue SCORE 5 MIN: 9 INFORMATION BABY A Gestational Age at Delivery: 39.4 Gestational Status: Full Term- 39- 40.6 Weeks Infant Outcome : Liveborn Infant Condition : Stable Sex: Male IDENTIFICATION BABY A Verification Date/Time: 02/11/2019 01:43 ID Band Number: [id number] Mother's Name Verified: Yes RN Verifying Infant: B. Ring _ K. Lion WEIGHT/LENGTH BABY A Birthweight (gm): 2898 Infant Weight (lb): 6 Infant Weight (oz): 6 Length (in): 18.25 Length (cm): 46.36 CORD INFORMATION BABY A No. Cord Vessels: 3 Nuchal Cord- Other: body/left foot cord Cord Blood Taken: Yes-For Eval (Mom's Blood Type - or O+) Infant Suction: None ASSESSMENT BABY A Complications: Meconium Physical Findings at Delivery: Within Normal Limits Physical Findings- Other: see initial nursery assessment Infant Respirations: Appears Normal Juice Standardizer/ALS Called : No Care By: Radha Bonilla RN Transferred To: Remains with Mother BABY B INFORMATION : N/A SIGNATURES Signature: with User ID: [email or web address]
[2019-02-11] MEDS: IBUPROFEN 800 MG TABLET PO SCH ×3 (05:18→21:16)
--- NOTE | 2019-02-11 10:16 | PDOC PROGRESS REPORT ---
Subjective-OB Progress Note for:: 02/11/19 Subjective: Pt feeling good, playing games on her phone. Family at bedside. She reports light bleeding, reg diet and voiding without difficulty. Physical Exam (OB) Vital Signs: Temp Pulse Resp BP Pulse Ox 97.9 F 64 14 97/58 L 100 02/11/19 07:13 02/11/19 07:13 02/11/19 07:13 02/11/19 07:13 02/11/19 07:13 Intake & Output 02/10/19 02/11/19 02/12/19 06:59 06:59 06:59 Intake Total 780 Output Total 400 Balance 380 Weight 73.8 kg - Lochia Lochia Amount: Scant < 10 ml Lochia Color: Rubra/Red - Abdomen Description: Soft, Round Hernia Present: No Fundal Description: Firm, Midline Fundal Height: u/u - u/2 Objective-Diagnostic Laboratory: 02/11/19 01:02 02/11/19 02/11/19 02/11/19 00:30 01:02 01:02 WBC 9.7 RBC 3.89 Hgb 11.9 L Hct 35.0 L MCV 90 MCH 30.5 MCHC 33.9 RDW 14.5 H Plt Count 217 Seg Neutrophils % 69.2 Urine Color YELLOW Urine Appearance CLEAR Urine pH 6.0 Ur Specific [place] 1.010 Urine Protein NEGATIVE Urine Glucose (UA) NEGATIVE Urine Ketones 25 H Urine Blood LARGE H Urine Nitrite NEGATIVE Ur Leukocyte Esterase LARGE H Blood Type O POSITIVE Antibody Screen NEGATIVE Assessment and Plan(PN) - Assessment and Plan (1) (spontaneous vaginal delivery) Is this a current diagnosis for this admission?: Yes (2) Multiple mental health issues Is this a current diagnosis for this admission?: Yes (3) Smoker Is this a current diagnosis for this admission?: Yes (4) Spontaneous onset of labor Is this a current diagnosis for this admission?: Yes - Time Spent with Patient Time with patient: Less than 15 minutes Medications reviewed and adjusted accordingly: Yes - Disposition Anticipated Discharge: Home Within: within 24 hours
[2019-02-11] MEDS: PRENATAL VITAMIN W DHA CAPSULE PO SCH (10:37)
[2019-02-11] MEDS: DOCUSATE SODIUM 100 MG CAPSULE PO SCH ×2 (10:37→18:02)
[2019-02-11] MEDS: FERROUS SULFATE 325 MG TABLET PO SCH ×2 (10:37→18:02)
[2019-02-11] MEDS: SENNOSIDES/DOCUSATE 8.6-50 MG 1 EACH TABLET PO SCH (10:37)
[2019-02-12] MEDS: IBUPROFEN 800 MG TABLET PO SCH ×3 (06:08→21:37)
[2019-02-12 07:06] LABS: HEMATOCRIT 32.1 % (36.0-47.0); HEMOGLOBIN 10.8 g/dL (12.0-15.5); MEAN CORPUSCULAR HEMOGLOBIN 30.6 pg (27.0-33.4); MEAN CORPUSCULAR HGB CONC 33.6 g/dL (32.0-36.0); MEAN CORPUSCULAR VOLUME 91 fl (80-97); PLATELET COUNT 205 10^3/uL (150-450); RED BLOOD COUNT 3.53 10^6/uL (3.72-5.28); RED CELL DISTRIBUTION WIDTH 14.1 % (11.5-14.0); WHITE BLOOD COUNT 12.2 10^3/uL (4.0-10.5)
[2019-02-12] MEDS: DOCUSATE SODIUM 100 MG CAPSULE PO SCH ×2 (09:40→17:54)
[2019-02-12] MEDS: PRENATAL VITAMIN W DHA CAPSULE PO SCH (09:40)
[2019-02-12] MEDS: SENNOSIDES/DOCUSATE 8.6-50 MG 1 EACH TABLET PO SCH (09:40)
[2019-02-12] MEDS: FERROUS SULFATE 325 MG TABLET PO SCH ×2 (09:40→17:54)
--- NOTE | 2019-02-12 09:49 | PDOC PROGRESS REPORT ---
Subjective-OB Progress Note for:: 02/12/19 - PP Day #1, doing well, no comlaints, , O+, rubella immune Physical Exam (OB) Vital Signs: Temp Pulse Resp BP Pulse Ox 97.6 F 82 14 105/68 100 02/12/19 08:05 02/12/19 08:05 02/12/19 08:05 02/12/19 08:05 02/12/19 08:05 Intake & Output 02/11/19 02/12/19 02/13/19 06:59 06:59 06:59 Intake Total 780 Output Total 400 Balance 380 Weight 73.8 kg - General General Appearance: Appears well, Alert In distress: None - PIH/Pre-Eclampsia DTR's: 1 + Clonus: Negative Headache: Absent Epigastric Pain: No Visual Changes: No - Lochia Lochia Amount: Scant < 10 ml Lochia Color: Rubra/Red - Abdomen Description: Tender, Soft, Round Hernia Present: No Fundal Description: Firm, Midline Fundal Height: u/u - u/2 - Respiratory Respiratory Status: No respiratory distress - Abdominal Inspection: Normal Distension: No distension Tenderness: Nontender - Genitourinary Genitourinary Note: voiding - Extremities Upper extremity: Normal inspection Lower extremities: Normal inspection - Neurological Cognition: Normal Orientation: AAOx4 - Psychological Associated symptoms: Normal affect, Normal mood - Skin Skin Temperature: Warm Skin Moisture: Dry Objective-Diagnostic Laboratory: 02/12/19 06:32 02/12/19 06:32 WBC 12.2 H RBC 3.53 L Hgb 10.8 L Hct 32.1 L MCV 91 MCH 30.6 MCHC 33.6 RDW 14.1 H Plt Count 205 Assessment and Plan(PN) - Assessment and Plan (1) Mental health disorder Is this a current diagnosis for this admission?: Yes (2) (spontaneous vaginal delivery) Is this a current diagnosis for this admission?: Yes (3) Spontaneous onset of labor Is this a current diagnosis for this admission?: Yes (4) Smoker Is this a current diagnosis for this admission?: Yes (5) Qualifiers: Weeks of gestation: 39 weeks Qualified Code(s): Z3A.39 - 39 weeks gestation of Is this a current diagnosis for this admission?: Yes - Time Spent with Patient Time with patient: Less than 15 minutes Medications reviewed and adjusted accordingly: Yes - Disposition Anticipated Discharge: Home Within: within 24 hours
[2019-02-13] MEDS: IBUPROFEN 800 MG TABLET PO SCH (05:07)
[2019-02-13] MEDS: PRENATAL VITAMIN W DHA CAPSULE PO SCH (10:04)
[2019-02-13] MEDS: SENNOSIDES/DOCUSATE 8.6-50 MG 1 EACH TABLET PO SCH (10:04)
[2019-02-13] MEDS: FERROUS SULFATE 325 MG TABLET PO SCH (10:04)
[2019-02-13] MEDS: DOCUSATE SODIUM 100 MG CAPSULE PO SCH (10:04)
--- NOTE | 2019-02-13 12:23 | PDOC DISCHARGE SUMMARY ---
Final Diagnosis Discharge Date: 02/13/19 - Final Diagnosis (1) Acute blood loss anemia Is this a current diagnosis for this admission?: Yes (2) Mental health disorder Is this a current diagnosis for this admission?: Yes (3) (spontaneous vaginal delivery) Is this a current diagnosis for this admission?: Yes (4) Smoker Is this a current diagnosis for this admission?: Yes (5) Spontaneous onset of labor Is this a current diagnosis for this admission?: Yes Discharge Data - Discharge Medication Prescriptions: Ibuprofen [Motrin 800 mg Tablet] 800 mg PO Q8HP PRN #20 tablet PRN Reason: Abdominal Cramping Docusate Sodium [Colace 100 mg Capsule] 100 mg PO BID #60 capsule Ferrous Sulfate [Feosol 325 mg Tablet] 325 mg PO BID #60 tablet Home Medications: No122/Iron/Folic Acid [ Multi Tablet] 1 tab PO DAILY 11/16/17 Ferrous Sulfate [Feosol 325 mg Tablet] 325 mg PO BID #60 tablet 11/18/17 Docusate Sodium [Colace 100 mg Capsule] 100 mg PO BID #60 capsule 02/13/19 Ferrous Sulfate [Feosol 325 mg Tablet] 325 mg PO BID #60 tablet 02/13/19 Ibuprofen [Motrin 800 mg Tablet] 800 mg PO Q8HP PRN #20 tablet 02/13/19 Reason(s) for Admission: Onset of Labor Procedures: Ultrasound Intrapartum Procedure(s): Spontaneous Vaginal Delivery - Diagnosis Test Laboratory: Temp Pulse Resp BP Pulse Ox 97.5 F 66 18 126/86 H 99 02/13/19 07:37 02/13/19 07:37 02/13/19 07:37 02/13/19 07:37 02/13/19 07:37 02/11/19 02/11/19 02/12/19 00:30 01:02 06:32 RBC 3.89 3.53 L Hgb 11.9 L 10.8 L Hct 35.0 L 32.1 L Urine Opiates Screen NEGATIVE - Discharge information/Instructions Discharge Activity: Activity As Tolerated, Balance Activity w/Rest, No Lifting Over 10 Pounds, Pelvic Rest, No tub bath, Walk Frequently Discharge Diet: As Tolerated, Regular Disposition: HOME WITH HOME HEALTH SERVICES Follow up with: [facility] in: 2, Weeks - depression f/u
[2019-02-13 12:36] VITALS: BP 108/59
== END 2019-02-13 15:15 | disposition home or self-care (01) | DRG 807 ==
LOC: LC 00:03 → LR 00:44 → 2S 03:46
PROVIDERS: ADMIT Obstetrics & Gynecology; ATTEND Obstetrics & Gynecology
PROC: 10E0XZZ Delivery of Products of Conception, External Approach (ICD-10-PCS; principal; 2019-02-11)
PROC: 10907ZC Drainage of Amniotic Fluid, Therapeutic from Products of Conception, Via Natural or Artificial Opening (ICD-10-PCS; 2019-02-11)
DX: O77.0 Labor and delivery complicated by meconium in amniotic fluid (principal); Z37.0 Single live birth; O99.334 Smoking (tobacco) complicating childbirth; F17.210 Nicotine dependence, cigarettes, uncomplicated; O69.82X0 Labor and delivery complicated by other cord entanglement, without compression, not applicable or unspecified; O99.02 Anemia complicating childbirth; D64.9 Anemia, unspecified; Z3A.39 39 weeks gestation of pregnancy; O99.344 Other mental disorders complicating childbirth
CPT/HCPCS: 36415; 80307; 81005; 84112; 85025; 85027; 86592; 86850; 86900; 86901; 88307; J2590; J3490

== ENCOUNTER 2019-09-22 19:13 | Emergency (ER) | payer SELFPAY ==
[2019-09-22] MEDS ORDERED: CEFEPIME 2 GM/D5W RTU 2 GM/50 ML RTUPB IV ONE (20:18)
[2019-09-22] MEDS ORDERED: NORMAL SALINE 1000 ML 1,000 ML IV ONE (20:18)
[2019-09-22 21:09] LABS: ABSOLUTE BASOPHILS # (AUTO) 0.1 10^3/uL (0.0-0.2); ABSOLUTE EOSINOPHILS # (AUTO) 0.2 10^3/uL (0.0-0.6); ABSOLUTE LYMPHOCYTES (AUTO) 2.1 10^3/uL (0.5-4.7); ABSOLUTE MONOCYTES (AUTO) 0.6 10^3/uL (0.1-1.4); ABSOLUTE NEUT (AUTO) 5.2 10^3/uL (1.7-8.2); BASOPHILS % (AUTO) 0.6 % (0-2); EOSINOPHILS % (AUTO) 2.5 % (0-6); HEMOGLOBIN 12.7 g/dL (12.0-15.5); MEAN CORPUSCULAR HEMOGLOBIN 32.9 pg (27.0-33.4); MEAN CORPUSCULAR HGB CONC 34.2 g/dL (32.0-36.0); MEAN CORPUSCULAR VOLUME 96 fl (80-97); MONOCYTES % (AUTO) 7.4 % (3-13); PLATELET COUNT 230 10^3/uL (150-450); RED BLOOD COUNT 3.85 10^6/uL (3.72-5.28); RED CELL DISTRIBUTION WIDTH 13.3 % (11.5-14.0); SEGMENTED NEUTROPHILS % (AUTO) 63.5 % (42-78); TOTAL CELLS COUNTED % (AUTO) 100 %; WHITE BLOOD COUNT 8.2 10^3/uL (4.0-10.5)
[2019-09-22 21:22] LABS: ALBUMIN 3.7 g/dL (3.5-5.0); ALKALINE PHOSPHATASE 62 U/L (38-126); ANION GAP 8 (5-19); ASPARTATE AMINO TRANSFERASE 27 U/L (14-36); BILIRUBIN,TOTAL 0.3 mg/dL (0.2-1.3); BLOOD UREA NITROGEN 10 mg/dL (7-20); CALCIUM 8.5 mg/dL (8.4-10.2); CARBON DIOXIDE 23 mmol/L (22-30); CHLORIDE 107 mmol/L (98-107); GLUCOSE 96 mg/dL (75-110); POTASSIUM 3.9 mmol/L (3.6-5.0); TOTAL PROTEIN 6.7 g/dL (6.3-8.2)
--- NOTE | 2019-09-22 22:40 | ER Document Report ---
Entered by HEAVENLY CRUZ SCRIBE 09/22/192016 Acting as scribe for:ANJELICA GASCA MD ED General - General Chief Complaint: Insect Bite Stated Complaint: POSSIBLE SPIDER BITE Primary Care Provider: LIAN HUERTA DO [Primary Care Provider] - Follow up as needed Information source: Patient Notes: This 34-year-old female presents to the emergency department after a bug bite l ast night that has worsened. Patient reports erythema and associated pain. Patient explains that last night she was having a cigarette when she felt a bug bite her right lower leg. Patient described the bite as harsh and itchy initially. Patient did not see the insect that bit her. Patient said that she woke up this morning and noticed the redness around the bite. Patient started to munir the progression of the spread throughout the day. Times the patient notes were 0952, 1100 and 1508. Patient said that she has tried putting ice on the bite and one Benadryl with no relief. Patient reports that her last tetanus was in 2014. TRAVEL OUTSIDE OF THE [place] IN LAST 30 DAYS: No - Related Data Allergies/Adverse Reactions: No Known Allergies Allergy (Verified 11/16/17 09:58) Past Medical History - General Information source: Patient - Social History Smoking Status: Current Every Day Smoker Cigarette use (# per day): Yes Chew tobacco use (# tins/day): No Frequency of alcohol use: Heavy Lives with: Spouse/Significant other Family History: Reviewed & Not Pertinent Patient has suicidal ideation: No Patient has homicidal ideation: No Pulmonary Medical History: Reports: Hx Bronchitis Psychiatric Medical History: Reports: Hx Bipolar Disorder, Hx Depression Past Surgical History: Reports: Hx Tonsillectomy Review of Systems - Review of Systems Constitutional: See HPI. denies: Fever EENT: No symptoms reported Cardiovascular: No symptoms reported Respiratory: No symptoms reported Gastrointestinal: No symptoms reported Genitourinary: No symptoms reported Female Genitourinary: No symptoms reported Musculoskeletal: No symptoms reported Skin: See HPI, Change in color, Other - Bug bite Hematologic/Lymphatic: No symptoms reported Neurological/Psychological: No symptoms reported -: Yes All other systems reviewed and negative Physical Exam - Vital signs Vitals: Temp Pulse Resp BP Pulse Ox 98.7 F 88 16 107/73 100 09/22/19 19:19 09/22/19 19:19 09/22/19 19:19 09/22/19 19:19 09/22/19 19:19 - Notes Notes: Physical Exam: General: Alert, appears well. HEENT: Normocephalic. Atraumatic. PERRL. Extraocular movements intact. Oropharynx clear. Neck: Supple. Non-tender. Respiratory: No respiratory distress. Clear and equal breath sounds bilaterally. Cardiovascular: Regular rate and rhythm. Abdominal: Normal Inspection. Non-tender. No distension. Normal Bowel Sounds. Back: No gross abnormalities. Extremities: Moves all four extremities. Upper extremities: Normal inspection. Normal ROM. Lower extremities: No edema. Normal ROM. Macular red rash that is 16 cm X 8 cm on the medial side on lower right leg with a center that has a insect bite that has dried clear mucous. Area is mildly tender and warm. Neurological: Normal cognition. AAOx4. Normal speech. Psychological: Normal affect. Normal Mood. Skin: Warm. Dry. Normal color. Course - Re-evaluation Re-evalutation: 09/22/19 22:29 Patient resting comfortably not showing any signs of distress at this time. Cellulitis has improved and faded in its red color. - Vital Signs Vital signs: Temp Pulse Resp BP Pulse Ox 98.7 F 88 16 107/73 100 09/22/19 19:34 09/22/19 19:19 09/22/19 19:19 09/22/19 19:19 09/22/19 19:19 09/22/19 22:30 Vital signs are stable - Laboratory Result Diagrams: 09/22/19 20:53 09/22/19 20:53 Discharge - Discharge Clinical Impression: Cellulitis of leg, right, Insect bite Condition: Stable Disposition: HOME, SELF-CARE Additional Instructions: Insect Bites You have been bitten by an insect. These bites can cause two types of swelling: an initial swelling due to insect saliva or injected poison, and a late reaction due to your body's allergic reaction. This initial local reaction may be uncomfortable but is not dangerous. Often there's an itchy "hive" at the bite location. This is treated with antihistamines, cold compresses, and resting the affected body part. The later reaction often develops about the second day. The entire area becomes very swollen, red, itchy, and tender. This is an allergic reaction. Your body is attacking the leftover insect saliva or venom. This type of allergy is unpleasant, but not dangerous. We treat this swelling with cortisone-type medicine. Sometimes we use antibiotics if we're worried about infection. Antihistamines help with the itch. If you develop a fever, chills, a red streak, or swollen glands in the area of the bite, infection may be starting. Return at once. Cellulitis You have an infection of your skin and underlying soft tissues called cellulitis. This is due to bacteria, which can enter through any break in the skin, or even through an irritated hair follicle. Untreated, cellulitis will usually worsen. Antibiotics are required. Usually, warm packs or warm soaks, and elevation of the infected area are recommended. You should start getting better within 24 to 36 hours. Most infections respond quickly to the right medication. Follow-up care is important, however, to check for abscess (boil) formation, unsuspected foreign body, or resistant infection. If you develop fever, chills, or if the area of infection is becoming rapidly more swollen or painful, call the doctor at once. If there is a significant amount of itching you may take Benadryl as you have done as needed for itching. Prescriptions: Amoxicillin/Potassium Clav [Augmentin 875-125 Tablet] 1 tab PO BID 10 Days #20 tablet Diphenhydramine HCl [Benadryl 25 mg Capsule] 25 mg PO QID PRN 7 Days #24 capsule PRN Reason: itching Methylprednisolone [Medrol Dosepack (4 mg/Tab) 21 Tab/Dosepak] 4 mg PO ASDIR PRN #21 tab.ds.pk PRN Reason: Referrals: LIAN HUERTA DO [Primary Care Provider] - Follow up as needed I personally performed the services described in the documentation, reviewed and edited the documentation which was dictated to the scribe in my presence, and it accurately records my words and actions.
[2019-09-22 22:52] VITALS: BP 106/68
== END 2019-09-22 22:52 | disposition home or self-care (01) ==
LOC: ER 19:13
DX: L03.115 Cellulitis of right lower limb (principal); S80.861A Insect bite (nonvenomous), right lower leg, initial encounter; W57.XXXA Bitten or stung by nonvenomous insect and other nonvenomous arthropods, initial encounter; F17.210 Nicotine dependence, cigarettes, uncomplicated
CPT/HCPCS: 99282; 96361; 96365; 36415; 87040; 85025; 80053; J7030; J0692

== ENCOUNTER → 2019-10-29 | Outpatient (CLI) | payer MEDICAID ==
--- NOTE | 2019-10-29 16:10 | RADIOLOGY REPORT (SQ) ---
EXAM DESCRIPTION: U/S [id number] TRNABD 1GES W/ODOP IMAGES COMPLETED DATE/TIME: 10/29/2019 3:29 pm REASON FOR STUDY: Z34.81 ENCOUNTER FOR SUPRVSN OF NORMAL , FIRST TRIMESTER Z34.81 ENCOUNTE R FOR SUPRVSN OF NORMAL , FIRST TRIM COMPARISON: None. TECHNIQUE: Transabdominal static and realtime grayscale images acquired of the pelvis. Additional se lected spectral and color Doppler images recorded. All images stored on PACs. bHCG: Not applicable. CLINICAL DATES: 10 week 4 day. LIMITATIONS: None. FINDINGS: FETUS: Single Living intrauterine . ULTRASOUND EGA: 9 week 4 day. ULTRASOUND ANUSHKA: 05/29/2020. EFW: Not applicable less than 20 weeks. CRL: 2.77 cm. FHR: 157 beats per minute. SURVEY: No visualized anomalies. AMNIOTIC FLUID: Adequate amount. PLACENTA: Not yet developed due to early gestation. SUBCHORIONIC BLEED: Yes. SIZE OF BLEED: 0.8 x 2.4 x 3.0 cm. UTERUS: Probable 2 cm anterior fibroid. CERVICAL LENGTH: 2.6 cm. Closed. RIGHT ADNEXA: Normal ovary with normal vascular flow. No adnexal free fluid. No adnexal masses. LEFT ADNEXA: Normal ovary with normal vascular flow. No adnexal free fluid. No adnexal masses. FREE FLUID: None. OTHER: No other significant finding. IMPRESSION: LIVING INTRAUTERINE . EGA 9 WEEK 4 DAY. SUBCHORIONIC BLEED. Trimester of : First trimester - 0 to 13 weeks. TECHNICAL DOCUMENTATION: JOB ID: [id number] [employer]- All Rights Reserved rev Reading location - IP/workstation name: [email or web address]-
== END ==
LOC: RAD 14:47
PROVIDERS: ATTEND Midwife
DX: O20.8 Other hemorrhage in early pregnancy (principal); Z3A.09 9 weeks gestation of pregnancy
CPT/HCPCS: 76801

== ENCOUNTER 2019-11-06 18:05 | Emergency (ER) | payer MEDICAID ==
--- NOTE | 2019-11-06 19:18 | ER Document Report ---
ED Medical Screen (RME) - General Chief Complaint: Vaginal Bleeding Stated Complaint: VAGINAL BLEEDING Time Seen by Provider: 11/06/19 19:06 Primary Care Provider: ALEJANDRA VELASCO CNM [Primary Care Provider] - Follow up as needed Notes: HPI: 34-year-old female who is a G6, presenting after seeing some vaginal bleeding when she wiped after urinating today. Denies vaginal discharge. Denies pelvic cramping. Patient states she recently started on Flagyl last week for BV. Patient states she has had an ultrasound done in the last week. States that when she wiped she saw pinkish-reddish on the toilet paper. No clots. Of note chart was reviewed and patient's ultrasound from 1 week ago did show a 9- week 4-day IUP but also a 2 cm possible fibroid PHYSICAL EXAMINATION: exam deferred in triage. No pelvic pain on palpation. I have greeted and performed a rapid initial assessment of this patient. A comprehensive ED assessment and evaluation of the patient, analysis of test results and completion of medical decision making process will be conducted by an additional ED providers. TRAVEL OUTSIDE OF THE [place] IN LAST 30 DAYS: No - Related Data Allergies/Adverse Reactions: No Known Allergies Allergy (Verified 11/16/17 09:58) Past Medical History - Social History Frequency of alcohol use: None Drug Abuse: None Pulmonary Medical History: Reports: Hx Bronchitis Renal/ Medical History: Denies: Hx Peritoneal Dialysis Psychiatric Medical History: Reports: Hx Bipolar Disorder, Hx Depression Past Surgical History: Reports: Hx Tonsillectomy Physical Exam - Vital signs Vitals: Temp Pulse Resp BP Pulse Ox 98.5 F 85 16 144/91 H 99 11/06/19 18:11 11/06/19 18:11 11/06/19 18:11 11/06/19 18:11 11/06/19 18:11 Course - Vital Signs Vital signs: Temp Pulse Resp BP Pulse Ox 98.5 F 85 16 144/91 H 99 11/06/19 19:04 11/06/19 18:11 11/06/19 18:11 11/06/19 18:11 11/06/19 18:11 Doctor's Discharge - Discharge Referrals: ALEJANDRA VELASCO CNM [Primary Care Provider] - Follow up as needed
--- NOTE | 2019-11-06 19:59 | RADIOLOGY REPORT (SQ) ---
EXAM DESCRIPTION: U/S 1TRIMESTER/1GEST W/DOPPLER IMAGES COMPLETED DATE/TIME: 11/06/2019 7:50 pm REASON FOR STUDY: vag bleed COMPARISON: None. TECHNIQUE: Transabdominal static and realtime grayscale images acquired of the pelvis. Additional se lected spectral and color Doppler images recorded. All images stored on PACs. bHCG: Not applicable. CLINICAL DATES: LMP 08/23/2019. 10 weeks 5 days. LIMITATIONS: None. FINDINGS: FETUS: Single Living intrauterine . ULTRASOUND EGA: 10 weeks 5 days ULTRASOUND ANUSHKA: 05/29/2020 EFW: Not applicable less than 20 weeks. CRL: 3.8 cm FHR: 158 beats per minute. SURVEY: Too early to assess. AMNIOTIC FLUID: Adequate amount. PLACENTA: Not yet developed due to early gestation. SUBCHORIONIC BLEED: Yes SIZE OF BLEED: 1.8 x 1.5 x 0.9 cm. UTERUS: No masses. No anomalies. CERVICAL LENGTH: 3 cm. Closed. RIGHT ADNEXA: Ovary not seen. No adnexal free fluid. No adnexal masses. LEFT ADNEXA: Normal ovary with normal vascular flow. 3.3 x 1.9 x 1.7 cm. No adnexal free fluid. No adnexal masses. FREE FLUID: None. OTHER: No other significant finding. IMPRESSION: LIVING INTRAUTERINE . EGA 10 weeks 5 days. Trimester of : First trimester - 0 to 13 weeks. TECHNICAL DOCUMENTATION: JOB ID: [id number] 2010 [employer]- All Rights Reserved rev Reading location - IP/workstation name: [email or web address]
[2019-11-06 21:01] LABS: ABSOLUTE EOSINOPHILS # (AUTO) 0.1 10^3/uL (0.0-0.6); ABSOLUTE MONOCYTES (AUTO) 0.5 10^3/uL (0.1-1.4); ABSOLUTE NEUT (AUTO) 5.4 10^3/uL (1.7-8.2); BASOPHILS % (AUTO) 0.3 % (0-2); EOSINOPHILS % (AUTO) 1.4 % (0-6); HEMATOCRIT 34.7 % (36.0-47.0); HEMOGLOBIN 11.7 g/dL (12.0-15.5); LYMPHOCYTES % (AUTO) 24.6 % (13-45); MEAN CORPUSCULAR HEMOGLOBIN 31.8 pg (27.0-33.4); MEAN CORPUSCULAR HGB CONC 33.7 g/dL (32.0-36.0); MEAN CORPUSCULAR VOLUME 94 fl (80-97); MONOCYTES % (AUTO) 6.8 % (3-13); PLATELET COUNT 222 10^3/uL (150-450); RED BLOOD COUNT 3.67 10^6/uL (3.72-5.28); RED CELL DISTRIBUTION WIDTH 12.5 % (11.5-14.0); SEGMENTED NEUTROPHILS % (AUTO) 66.9 % (42-78); TOTAL CELLS COUNTED % (AUTO) 100 %; WHITE BLOOD COUNT 8.1 10^3/uL (4.0-10.5)
[2019-11-06 21:05] LABS: APPEARANCE,URINE SLIGHTLY-CLOUDY; BILIRUBIN,URINE NEGATIVE (NEGATIVE); COLOR,URINE YELLOW; GLUCOSE, URINE NEGATIVE (NEGATIVE); KETONES,URINE NEGATIVE (NEGATIVE); LEUKOCYTE ESTERASE,URINE MODERATE (NEGATIVE); NITRITE,URINE NEGATIVE (NEGATIVE); PROTEIN,URINE NEGATIVE (NEGATIVE); URINE SPECIFIC GRAVITY 1.021; UROBILINOGEN,URINE NEGATIVE mg/dL (<2.0)
[2019-11-06 21:27] LABS: ALBUMIN 3.3 g/dL (3.5-5.0); ALKALINE PHOSPHATASE 45 U/L (38-126); ASPARTATE AMINO TRANSFERASE 20 U/L (14-36); BILIRUBIN,TOTAL 0.2 mg/dL (0.2-1.3); BLOOD UREA NITROGEN 8 mg/dL (7-20); CALCIUM 8.5 mg/dL (8.4-10.2); GLUCOSE 89 mg/dL (75-110); POTASSIUM 3.8 mmol/L (3.6-5.0); TOTAL PROTEIN 6.3 g/dL (6.3-8.2)
[2019-11-06 21:32] LABS: ANION GAP 5 (5-19); CARBON DIOXIDE 24 mmol/L (22-30); CHLORIDE 104 mmol/L (98-107)
--- NOTE | 2019-11-07 03:09 | ER Document Report ---
ED General - General Chief Complaint: Vaginal Bleeding Stated Complaint: VAGINAL BLEEDING Time Seen by Provider: 11/06/19 19:06 Primary Care Provider: ALEJANDRA VELASCO CNM [NO LOCAL MD] - Follow up as needed TRAVEL OUTSIDE OF THE [place] IN LAST 30 DAYS: No - HPI Notes: 34-year-old female G6, P4 approximately 10.5 weeks gestational age presents with scant vaginal bleeding for few hours prior to arrival. Patient says that when she went to bathroom she wiped and she noticed some small amount of dark blood on the [place]. Has not required any sanitary napkins. Patient otherwise feels well, has been following closely with TELEPHONE APPOINTMENT CLERK and no complications so far with this or prior pregnancies. Patient recently had full panel STD testing that was negative except for trichomonas which patient has been using Flagyl for and has been compliant. Patient denies any pelvic pain, discharge, urinary symptoms, flank pain, trauma, vomiting, dizziness, syncope, chest pain, shortness of breath, anticoagulation, bleeding diatheses, fever - Related Data Allergies/Adverse Reactions: No Known Allergies Allergy (Verified 11/16/17 09:58) Past Medical History - General Information source: Patient - Social History Smoking Status: Current Every Day Smoker Frequency of alcohol use: None Drug Abuse: None Family History: Reviewed & Not Pertinent Patient has homicidal ideation: No Pulmonary Medical History: Reports: Hx Bronchitis Renal/ Medical History: Denies: Hx Peritoneal Dialysis Psychiatric Medical History: Reports: Hx Bipolar Disorder, Hx Depression Past Surgical History: Reports: Hx Tonsillectomy Review of Systems - Review of Systems Notes: REVIEW OF SYSTEMS: CONSTITUTIONAL : Denies fever, chills, or sweats. EENT: Denies recent cold/sinus symptoms, denies throat pain CARDIOVASCULAR: Denies chest pain, ROLANDO RESPIRATORY: Denies cough, denies shortness of breath. GASTROINTESTINAL: Denies abdominal pain, nausea/vomiting. GENITOURINARY: Denies difficulty urinating, painful urination. FEMALE GENITOURINARY: +abnormal vaginal bleeding, -vaginal discharge. MUSCULOSKELETAL: Denies neck pain, back pain. SKIN: Denies rash or skin lesions. HEMATOLOGIC : Denies easy bruising or bleeding. LYMPHATIC: Denies swollen, enlarged glands. NEUROLOGICAL: Denies headache, denies change in gait. PSYCHIATRIC: Denies anxiety or stress or depression. Physical Exam - Vital signs Vitals: Temp Pulse Resp BP Pulse Ox 98.5 F 85 16 144/91 H 99 11/06/19 18:11 11/06/19 18:11 11/06/19 18:11 11/06/19 18:11 11/06/19 18:11 - Notes Notes: PHYSICAL EXAMINATION: GENERAL: Well-appearing, well-nourished, with pleasant comfortable appearing adult woman sitting up in stretcher in no distress. HEAD: Atraumatic, normocephalic. EYES: Pupils equal round and appropriate constriction, sclera anicteric, conjunctiva are normal. ENT: nares patent, moist mucous membranes. NECK: Normal range of motion, supple without lymphadenopathy LUNGS: Breath sounds clear to auscultation bilaterally and equal. No wheezes rales or rhonchi. HEART: Regular rate and rhythm without murmurs ABDOMEN/PELVIS: Soft, nontender, no guarding, no masses, no CVAT EXTREMITIES: Normal range of motion, no pitting or edema. No cyanosis. NEUROLOGICAL: Awake, alert, conversing appropriately, moves all extremities spontaneously. PSYCH: Normal mood, normal affect. SKIN: Warm, Dry, normal turgor, no rashes or lesions noted. Course - Re-evaluation Re-evalutation: 11/07/19 04:00 Patient with very low amounts of early bleeding, normal exam, normal vitals, well-appearing, hemoglobin normal, no persistent bleeding, live IUP and subchorionic hemorrhage present on ultrasound likely cause of bleeding. Rh+, no RhoGam needed. Had lengthy discussion with patient regarding weaning of early bleeding and emphasized importance of calling her OB in the morning and discussing the events that brought her to the ED overnight. Gave patient extensive return to ED precautions which she demonstrated understanding of. Patient given results of all imaging and labs to bring to her OB when she follows up. 11/08/19 11:33 - Vital Signs Vital signs: Temp Pulse Resp BP Pulse Ox 98.2 F 64 16 108/68 100 11/07/19 03:31 11/06/19 23:13 11/07/19 03:31 11/07/19 03:31 11/06/19 23:13 - Laboratory Result Diagrams: 11/06/19 20:41 11/06/19 20:41 Laboratory results interpreted by me: 11/06/19 11/06/19 11/06/19 20:30 20:41 20:41 RBC 3.67 L Hgb 11.7 L Hct 34.7 L Sodium 133.0 L Creatinine 0.48 L Albumin 3.3 L Beta HCG, Quant 65321.00 H Urine Blood MODERATE H Ur Leukocyte Esterase MODERATE H Discharge - Discharge Clinical Impression: Vaginal bleeding before 22 weeks gestation Condition: Stable Disposition: HOME, SELF-CARE Additional Instructions: Threatened Miscarriage You have been evaluated for a possible miscarriage. At this time, there is no indication that a miscarriage will occur. Most women with your symptoms will go on to have a perfectly normal baby. However, careful observation will be necessary. A miscarriage occurs when the fetus is abnormal. There is no medicine or treatment for it. You should rest in bed until the symptoms have resolved. Do not douche or have sex for at least a week, or until OK'd by the doctor. Call the doctor or return for re-examination if there is an increase in bleeding or cramping, or passage of tissue. Call your OB today during business hours to inform them of your ED visit and schedule follow-up within the next week. If you have worsening bleeding, worsening pain, dizziness, fainting, trouble breathing, fever, or any other worsening or alarming symptoms return to the emergency department immediately. Referrals: ALEJANDRA VELASCO CNM [NO LOCAL MD] - Follow up as needed
[2019-11-07 03:51] VITALS: BP 108/68
== END 2019-11-07 03:55 | disposition home or self-care (01) ==
LOC: ER 18:05
DX: O46.91 Antepartum hemorrhage, unspecified, first trimester (principal); Z3A.10 10 weeks gestation of pregnancy; O99.331 Smoking (tobacco) complicating pregnancy, first trimester
CPT/HCPCS: 36415; 76801; 80053; 81001; 84702; 85025; 93976; 99284

== ENCOUNTER 2020-05-08 18:37 | Outpatient (CLI) | payer MEDICAID ==
[2020-05-08 20:47] LABS: APPEARANCE,URINE CLOUDY; BILIRUBIN,URINE NEGATIVE (NEGATIVE); COLOR,URINE YELLOW; GLUCOSE, URINE NEGATIVE (NEGATIVE); KETONES,URINE 80 mg/dL (NEGATIVE); LEUKOCYTE ESTERASE,URINE LARGE (NEGATIVE); NITRITE,URINE NEGATIVE (NEGATIVE); PROTEIN,URINE 30 mg/dL (NEGATIVE); URINE SPECIFIC GRAVITY 1.021; UROBILINOGEN,URINE NEGATIVE mg/dL (<2.0)
[2020-05-08 21:15] LABS: URINE AMPHETAMINES SCREEN NEGATIVE; URINE BARBITURATES SCREEN NEGATIVE; URINE BENZODIAZEPINES SCREEN NEGATIVE; URINE COCAINE SCREEN NEGATIVE; URINE MARIJUANA (THC) SCREEN NEGATIVE; URINE METHADONE SCREEN NEGATIVE; URINE PHENCYCLIDINE SCREEN NEGATIVE
[2020-05-08] MEDS ORDERED: RINGERS SOLUTION,LACTATED 1,000 ML IV ONE (21:28)
[2020-05-08] MEDS ORDERED: RINGERS SOLUTION,LACTATED 1,000 ML IV PRN (21:28)
--- NOTE | 2020-05-09 01:03 | Non Stress Test Report ---
Non Stress Test Datetime Report Generated by CPN: 05/09/2020 01:02 DEMOGRAPHIC Test Number: 1 EGA NST: 38.0 INDICATION Indication for Study (NST) Other: LC URINE RESULTS Urine Protein, NST: Negative Urine Ketones - NST: Positive Urine Glucose - NST: Negative Urine Blood - NST: Negative MONITORING Monitor Explained: Monitor Explained; Test Explained; Patient Verbalized Understanding Time on Monitor: 05/08/2020 23:40 Time off Monitor: 05/09/2020 00:03 NST Duration: 23 NST INTERVENTIONS NST Interventions: PO Hydration Physician Notified NST: [place] BABY A: [id number] BABY A Movement : Present Contraction Frequency : 3.5-4 FHR Baseline : 125 Accelerations : 15X15 Decelerations : None Variability : Moderate 6-25bpm NST Review: Meets Criteria for Reactive NST NST Review and Verified By : CRISTELA Fulton NST Results: Reactive NST REPORT Report Trigger: Send Report
== END 2020-05-09 00:11 | disposition home or self-care (01) ==
LOC: LC 18:37
PROVIDERS: ATTEND Student in an Organized Health Care Education/Training Program
DX: Z34.93 Encounter for supervision of normal pregnancy, unspecified, third trimester (principal)
CPT/HCPCS: 59025; 80307; 81005

== ENCOUNTER 2020-05-13 14:34 | Observation (INO) | payer MEDICAID ==
[2020-05-13] MEDS ORDERED: DEXTROSE 5%-LACTATED RINGERS 1,000 ML IV PRN (15:16)
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
[2020-05-13 15:50] LABS: URINE AMPHETAMINES SCREEN NEGATIVE; URINE BARBITURATES SCREEN NEGATIVE; URINE BENZODIAZEPINES SCREEN NEGATIVE; URINE COCAINE SCREEN NEGATIVE; URINE MARIJUANA (THC) SCREEN NEGATIVE; URINE METHADONE SCREEN NEGATIVE; URINE PHENCYCLIDINE SCREEN NEGATIVE
[2020-05-13 16:15] LABS: ABSOLUTE LYMPHOCYTES (AUTO) 1.6 10^3/uL (0.5-4.7); ABSOLUTE MONOCYTES (AUTO) 0.7 10^3/uL (0.1-1.4); ABSOLUTE NEUT (AUTO) 5.8 10^3/uL (1.7-8.2); BASOPHILS % (AUTO) 0.3 % (0-2); EOSINOPHILS % (AUTO) 0.4 % (0-6); HEMATOCRIT 27.1 % (36.0-47.0); HEMOGLOBIN 8.9 g/dL (12.0-15.5); LYMPHOCYTES % (AUTO) 19.7 % (13-45); MEAN CORPUSCULAR HEMOGLOBIN 28.3 pg (27.0-33.4); MEAN CORPUSCULAR HGB CONC 32.7 g/dL (32.0-36.0); MEAN CORPUSCULAR VOLUME 87 fl (80-97); MONOCYTES % (AUTO) 8.3 % (3-13); PLATELET COUNT 191 10^3/uL (150-450); RED BLOOD COUNT 3.13 10^6/uL (3.72-5.28); RED CELL DISTRIBUTION WIDTH 13.8 % (11.5-14.0); SEGMENTED NEUTROPHILS % (AUTO) 71.3 % (42-78); TOTAL CELLS COUNTED % (AUTO) 100 %; WHITE BLOOD COUNT 8.1 10^3/uL (4.0-10.5)
[2020-05-13] MEDS ORDERED: MAG HYDROX/AL HYDROX/SIMETH SUSP 30 ML UDCUP PO ONE (20:02)
[2020-05-13] MEDS ORDERED: MAG HYDROX/AL HYDROX/SIMETH SUSP 30 ML UDCUP ONE (20:04)
[2020-05-13] MEDS ORDERED: RINGERS SOLUTION,LACTATED 1,000 ML IV PRN (20:07)
[2020-05-13] MEDS ORDERED: MISOPROSTOL 0.2 MG TABLET ONE (21:53)
[2020-05-13] MEDS ORDERED: OXYTOCIN 10 UNIT/ML VIAL ONE (21:53)
[2020-05-13] MEDS ORDERED: LIDOCAINE 1% INJ-PF (10 MG/ML) 30 ML SDV ONE (21:54)
[2020-05-13] MEDS ORDERED: OXYTOCIN/0.9 % SODIUM CHLORIDE 0 UNIT/0 ML RTUINJ ONE (21:54)
[2020-05-13] MEDS ORDERED: PROMETHAZINE HCL INJ 25 MG/1 ML VIAL IV ONE (22:35)
[2020-05-13] MEDS ORDERED: PROMETHAZINE HCL INJ 25 MG/1 ML VIAL ONE (22:39)
[2020-05-13] MEDS ORDERED: NALBUPHINE HCL INJ 10 MG/1 ML AMPULE ONE (22:39)
[2020-05-13] MEDS ORDERED: NALBUPHINE HCL INJ 10 MG/1 ML AMPULE INJ ONE (22:48)
== END 2020-05-14 08:06 | disposition home or self-care (01) ==
LOC: LC 14:34 → INTOOBSV 14:49 → LR 14:49
PROVIDERS: ADMIT Obstetrics & Gynecology; ATTEND Obstetrics & Gynecology
DX: O47.1 False labor at or after 37 completed weeks of gestation (principal); O40.3XX0 Polyhydramnios, third trimester, not applicable or unspecified; O99.333 Smoking (tobacco) complicating pregnancy, third trimester; F17.200 Nicotine dependence, unspecified, uncomplicated; Z3A.38 38 weeks gestation of pregnancy
CPT/HCPCS: 86900; 86901; 36415; 86850; 85025; 86592; 80307; 59899; G0378 ×2; J3490; J2300; J2550; J2590

== ENCOUNTER 2020-05-15 02:36 | Inpatient (IN) | payer MEDICAID ==
[2020-05-15] MEDS ORDERED: RINGERS SOLUTION,LACTATED 1,000 ML IV PRN (02:44)
[2020-05-15] MEDS ORDERED: RINGERS SOLUTION,LACTATED 1,000 ML IV ONE (02:44)
[2020-05-15 03:19] LABS: APPEARANCE,URINE CLOUDY; BILIRUBIN,URINE NEGATIVE (NEGATIVE); COLOR,URINE YELLOW; GLUCOSE, URINE NEGATIVE (NEGATIVE); KETONES,URINE NEGATIVE (NEGATIVE); LEUKOCYTE ESTERASE,URINE LARGE (NEGATIVE); NITRITE,URINE NEGATIVE (NEGATIVE); PROTEIN,URINE NEGATIVE (NEGATIVE); URINE SPECIFIC GRAVITY 1.014; UROBILINOGEN,URINE NEGATIVE mg/dL (<2.0)
[2020-05-15 03:21] LABS: ABSOLUTE EOSINOPHILS # (AUTO) 0.1 10^3/uL (0.0-0.6); ABSOLUTE LYMPHOCYTES (AUTO) 1.5 10^3/uL (0.5-4.7); ABSOLUTE MONOCYTES (AUTO) 0.9 10^3/uL (0.1-1.4); ABSOLUTE NEUT (AUTO) 6.4 10^3/uL (1.7-8.2); BASOPHILS % (AUTO) 0.2 % (0-2); EOSINOPHILS % (AUTO) 0.6 % (0-6); HEMATOCRIT 26.1 % (36.0-47.0); HEMOGLOBIN 8.7 g/dL (12.0-15.5); LYMPHOCYTES % (AUTO) 16.8 % (13-45); MEAN CORPUSCULAR HGB CONC 33.5 g/dL (32.0-36.0); MEAN CORPUSCULAR VOLUME 87 fl (80-97); MONOCYTES % (AUTO) 10.6 % (3-13); PLATELET COUNT 192 10^3/uL (150-450); RED BLOOD COUNT 3.01 10^6/uL (3.72-5.28); RED CELL DISTRIBUTION WIDTH 13.6 % (11.5-14.0); SEGMENTED NEUTROPHILS % (AUTO) 71.8 % (42-78); TOTAL CELLS COUNTED % (AUTO) 100 %; WHITE BLOOD COUNT 8.9 10^3/uL (4.0-10.5)
[2020-05-15 03:38] LABS: URINE AMPHETAMINES SCREEN NEGATIVE; URINE BARBITURATES SCREEN NEGATIVE; URINE BENZODIAZEPINES SCREEN NEGATIVE; URINE COCAINE SCREEN NEGATIVE; URINE MARIJUANA (THC) SCREEN NEGATIVE; URINE METHADONE SCREEN NEGATIVE; URINE PHENCYCLIDINE SCREEN NEGATIVE
[2020-05-15] MEDS ORDERED: MISOPROSTOL 0.2 MG TABLET ONE (06:10)
[2020-05-15] MEDS ORDERED: OXYTOCIN/0.9 % SODIUM CHLORIDE 30 UNIT/500 ML RTUINJ ONE (06:10)
[2020-05-15] MEDS ORDERED: LIDOCAINE 1% INJ-PF (10 MG/ML) 30 ML SDV ONE (06:10)
[2020-05-15] MEDS ORDERED: OXYTOCIN 10 UNIT/ML VIAL ONE (06:10)
[2020-05-15] MEDS ORDERED: EPHEDRINE SULFATE INJ 50 MG/1 ML AMPULE ONE (06:50)
[2020-05-15] MEDS ORDERED: ROPIVACAINE HCL 0.2% INJ/PF (2 MG/ML) 20 ML SDV ONE (06:51)
[2020-05-15] MEDS ORDERED: FENTANYL/BUPIVACAINE/NS/PF 300 MCG/150 ML RTUINJ EPI ONE (06:51)
[2020-05-15] MEDS ORDERED: NORMAL SALINE 250 ML IV PRN (07:52)
[2020-05-15] MEDS ORDERED: CARBOPROST TROMETHAMINE INJ 250 MCG/1 ML AMPULE ONE (08:15)
[2020-05-15] MEDS ORDERED: TRANEXAMIC ACID INJ/PF 1,000 MG/10 ML SDV ONE (08:15)
[2020-05-15] MEDS ORDERED: METHYLERGONOVINE MALEATE INJ/PF 0.2 MG/1 ML AMPULE ONE (08:16)
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
[2020-05-15] MEDS ORDERED: ACETAMINOPHEN 325 MG TABLET PO PRN (08:56)
[2020-05-15] MEDS ORDERED: ZOLPIDEM TARTRATE 5 MG TABLET PO PRN (08:56)
[2020-05-15] MEDS ORDERED: PROMETHAZINE HCL INJ 25 MG/1 ML VIAL IV PRN (08:56)
[2020-05-15] MEDS ORDERED: PROMETHAZINE HCL 25 MG TABLET PO PRN (08:56)
[2020-05-15] MEDS ORDERED: BENZOCAINE/MENTHOL AEROSOL SPRAY 56 ML TOP PRN (08:56)
[2020-05-15] MEDS ORDERED: DIBUCAINE 1% OINTMENT 28 GM TP PRN (08:56)
[2020-05-15] MEDS ORDERED: ACETAMINOPHEN WITH CODEINE #3 TABLET PO PRN ×2 (08:56)
[2020-05-15] MEDS ORDERED: GLYCERIN/WITCH HAZEL LEAF 1 EACH MED..WIPE TP PRN (08:56)
[2020-05-15] MEDS ORDERED: DIPHENHYDRAMINE HCL 25 MG CAPSULE PO PRN (08:56)
[2020-05-15] MEDS ORDERED: PSEUDOEPHEDRINE HCL 30 MG TABLET PO PRN (08:56)
[2020-05-15] MEDS ORDERED: MISOPROSTOL 0.2 MG TABLET PR PRN (08:56)
[2020-05-15] MEDS ORDERED: MEASLES,MUMPS&RUBELLA VACC/PF 0.5 ML VIAL SUBCUT PRN (08:56)
[2020-05-15] MEDS ORDERED: MAGNESIUM HYDROXIDE SUSP 30 ML UDCUP PO PRN (08:56)
[2020-05-15] MEDS ORDERED: NA PHOS,M-B/NA PHOS,DI-BA (ADULT) 133 ML ENEMA PR PRN (08:56)
[2020-05-15] MEDS ORDERED: OXYTOCIN/0.9 % SODIUM CHLORIDE 30 UNIT/500 ML RTUINJ IV PRN (08:56)
[2020-05-15] MEDS ORDERED: DIPH/PERTUSS(ACELL)/TETANUS VAC/PF 0.5 ML SYR (>=10YO) IM PRN (08:56)
[2020-05-15] MEDS ORDERED: PROMETHAZINE HCL 25 MG SUPP.RECT PR PRN (08:56)
--- NOTE | 2020-05-15 09:50 | Birth Certificate Data ---
Cert Data Datetime Report Generated by CPN: 05/15/2020 09:50 CERTIFICATE DATA Delivery Provider: Kusum Guadalupe CNM (05/08/2020 19:10:Adrianne Hair RN) 47a. Care: No (05/08/2020 19:10:Karol Ro RN) 47b. Date of First Visit: 02/13/2020 00:00 (05/08/2020 19:10:Karol Ro RN) 47c. Date of Last Visit: 05/13/2020 00:00 (05/08/2020 19:10:Karol Ro RN) 47d. Number of Visits: 6 (05/08/2020 19:10:Karol Ro RN) 48a. Number of Prev Live Births: 4 (05/08/2020 19:10:Luna Seymour RN) 48b. Now Livin (05/08/2020 19:10:Luna Seymour RN) 48c. Live Births Now : 0 (05/08/2020 19:10:QS system process) 48d. Date of Last Live : 02/11/2019 00:00 (05/08/2020 19:10:Dave Fong RN) 48e. Losses: 1 (05/08/2020 19:10:Karol Ro RN) 48f. Date of Last Preg Loss: 07/28/2019 00:00 (05/08/2020 19:10:Dave Fong RN) RISK FACTORS IN THIS 49a. Diabetes: No (05/08/2020 19:10:Karol Ro RN) 49b. Hypertension: No (05/08/2020 19:10:Karol Ro RN) 49c. Previous Births: 1 (05/08/2020 19:10:Nickie Oneal RN) 49d. Stillborns: No (05/08/2020 19:10:Karol Ro RN) 49d. IUGR: No (05/08/2020 19:10:Karol Ro RN) 49e. Infertility Treatment: No (05/08/2020 19:10:Karol Ro RN) 49f. Previous Cesareans: 0 (05/08/2020 19:10:Karol Ro RN) Mother's Height 50b. Height Inches: 63 (05/15/2020 02:47:QS system process) Mother's Weight 51a. Pre- Weight (lbs): 152 (05/08/2020 19:10:Karol Ro RN) 51b. Weight at Delivery (lbs): 161 (05/15/2020 02:47:QS system process) 52. Dt Last Normal Menses Began: 08/16/2019 00:00 (05/08/2020 19:10:Karol Ro RN) Infections Present/Treated 53a. Gonorrhea: No (05/08/2020 19:10:Karol Ro RN) Results this Hospital Visit : Negative (05/08/2020 19:10:Luna Seymour RN) 53b. Syphilis: No (05/08/2020 19:10:Karol Ro RN) Results this Hospital Visit: NONREACTIVE (05/15/2020 03:05:QS system process) 53c. Chlamydia: No (05/08/2020 19:10:Karol Ro RN) Results this Hospital Visit: Negative (05/08/2020 19:10:Luna Seymour RN) 53d. Hepatitis B: No (05/08/2020 19:10:Karol Ro RN) Results this Hospital Visit: Negative (05/08/2020 19:10:Luna Seymour RN) 53e. Hepatitis C: Negative (05/08/2020 19:10:Luna Seymour RN) 53h. Mother Tested for HBsAG: Yes (05/08/2020 19:10:Luna Seymour RN) 53i. Date Tested: 10/30/2019 00:00 (05/08/2020 19:10:Luna Seymour RN) 53j. Test Result: Negative (05/08/2020 19:10:Luna Seymour RN) Obstetric Procedures 54a, b, c. Obstetric Procedures: Ultrasound (05/08/2020 19:10:Karol Ro RN) Cigarette Smoking Cigarette Smoking: Current Everyday Smoker. [id number] (05/08/2020 19:10:Luna Seymour RN) 55a. 3 Months Before Preg - Ci (05/08/2020 19:10:Karol Ro RN) 55a. Packs: 1 (05/08/2020 19:10:Karol Ro RN) 55b. 1st Trimester of Preg- Ci (05/08/2020 19:10:Karol Ro RN) 55b. Packs: 1 (05/08/2020 19:10:Karol Ro RN) 55c. 2nd Trimester of Preg- Ci (05/08/2020 19:10:Karol Ro RN) 55c. Packs: 1 (05/08/2020 19:10:Karol Ro RN) 55d. 3rd Trimester of Preg- Ci (05/08/2020 19:10:Karol Ro RN) 55d. Packs: 1 (05/08/2020 19:10:Karol Ro RN) Onset of Labor 56a. PROM >12 Hrs: 0.68 (05/15/2020 08:02:QS system process) 56b. Precipitous Labor <3 Hrs: 2 (05/08/2020 19:10:QS system process) 56c. Prolonged Labor > 20 Hrs: 2 (05/08/2020 19:10:QS system process) 57a. Induction of Labor: N/A (05/08/2020 19:10:Adrianne Hair RN) 57c. Non-Vertex Presentation A: Vertex (05/08/2020 19:10:Adrianne Hair RN) 57d. Steroids - Lung Mat: None (05/08/2020 19:10:Adrianne Hair RN) 57d. Steroids - Lung Mat: Not Applicable (05/08/2020 19:10:Adrianne Hair RN) 57f. Mat [place] or Temp >100.4: 98.8 (05/08/2020 19:10:Adrianne Hair RN) 57g. Moderate/Heavy Meconium: Clear (05/15/2020 08:02:Adrianne Hair RN) 57h. Intolerance of Labor: N/A (05/08/2020 19:10:Adrianne Hair RN) : N/A (05/08/2020 19:10:Adrianne Hair RN) 57i. Epidural/Spinal Anesthesia: Epidural (05/08/2020 19:10:Adrianne Hair RN) Method of Delivery 58a. Forceps - Unsuccessful A: N/A (05/08/2020 19:10:Adrianne Hair RN) 58b. Vacuum - Unsuccessful A: N/A (05/08/2020 19:10:Adrianne Sales, RN) 58c. Presentation at 58c. Presentation at - A : Vertex (05/08/2020 19:10:Adrianne Hair RN) 58c. Presentation at - A : N/A (05/08/2020 19:10:Adrianne Hair RN) 58c. Presentation at - A : Cephalic (05/08/2020 23:36:Luna Seymour RN) Final Route and Method of Del 58d. Baby A Route/Delivery: Vaginal (05/08/2020 19:10:Adrianne Hair, RN) 58e. Trial of Labor Attempted: No (05/08/2020 19:10:Adrianne Hair RN) 58e. Trial of Labor Attempted A: N/A (05/08/2020 19:10:Adrianne Hair, RN) Maternal Morbidity 59b. 3rd or 4th Degree Lacs: None (05/08/2020 19:10:Kusum Guadalupe, CNM ) Birthweight Baby A: 3507 (05/08/2020 19:10:Adrianne Sales, RN) 60a. Pounds : 7 (05/08/2020 19:10:QS system process) 60b. Ounces: 12 (05/08/2020 19:10:QS system process) 61. GA at Delivery Baby A: 39.0 (05/08/2020 19:10:Adrianne Sales, RN) : Full Term- 39- 40.6 Weeks (05/08/2020 19:10:QS system process) 62a. 5 Minute Baby A: 9 (05/08/2020 19:10:QS system process)
--- NOTE | 2020-05-15 09:50 | Delivery Summary ---
Del Sum A-C Datetime Report Generated by CPN: 05/15/2020 09:50 DELIVERY PERSONNEL DELIVERY PERSONNEL: [id number] Delivery Doctor:: Kusum Guadalupe CNM Labor and Delivery Nurse:: Adrianne Hair vehicle service attendant Nurse:: Luci QuevedoCRISTELA MATERNAL INFORMATION Delivery Anesthesia: Epidural Medications After Delivery: Pitocin 30 Units in 500ml NS/D5W; Cytotec 1000mcg Per Rectum/Vagina Maternal Complications: Precipitous Labor (<3hrs) Provider Comments: JAZMINE VIABLE MALE INFANT WITH SPONTANEOUS CRY. CORD DOUBLE CLAMPED AND CUT. SPONTANEOUS PLACENTA INTACT WITH 3VC. NO LACERATIONS. CYTOTEC ID GIVEN BY [facility] FOR PREVENTION OF PPH. MOTHER AND INFANT STABLE IN L_D#5. LABOR SUMMARY EDC: 05/22/2020 00:00 No. Babies in Womb: 1 Attempted: No Labor Anesthesia: Epidural LABOR INFORMATION Reason for Induction: Polyhydramnios Onset of Labor: 05/15/2020 05:59 Complete Dilatation: 05/15/2020 08:35 Oxytocin: N/A Group B Beta Strep: negative Antibiotics # of Doses: NA Name of Antibiotic Given: NA Steroids Given: None Reason Steroids Not Administered: Not Applicable MEMBRANES Membranes Rupture Method: Artificial Rupture of Membranes: 05/15/2020 08:02 Length of Rupture (hr): 0.68 Amniotic Fluid Color: Clear Amniotic Fluid Amount: Moderate Amniotic Fluid Odor: Normal STAGES OF LABOR Stage 1 hr: 2 Stage 1 min: 36 Stage 2 hr: 0 Stage 2 min: 8 Stage 3 hr: 0 Stage 3 min: 5 Total Time in Labor hr: 2 Total Time in Labor min: 49 VAGINAL DELIVERY Episiotomy: None Laceration #1: None Laceration Extension #1: N/A Laceration Repair: Not Applicable Sharps Count Correct: N/A CSECTION DELIVERY Primary Indication: N/A Secondary Indication: N/A CSection Incidence: N/A Labor: N/A Elective: N/A CSection Incision: N/A BABY A INFORMATION Delivery Date/Time: 05/15/2020 08:43 Method of Delivery: Vaginal Nurse Controlled Delivery: No Born in Route : No : N/A Forceps: N/A Vacuum Extraction: N/A Shoulder Dystocia : No PRESENTATION/POSITION BABY A Presentation: Cephalic Cephalic Presentation: Vertex Vertex Position: Left Occipital Anterior Breech Presentation: N/A PLACENTA INFORMATION BABY A Placenta Delivery Time : 05/15/2020 08:48 Placenta Method of Delivery: Spontaneous Placenta Status: Delivered SCORES BABY A Heart Rate 1 min: >100 bpm Resp Effort 1 min: Good Cry Reflex Irritability 1 min: Cough or Sneeze or Pulls Away Muscle Tone 1 min: Active Motion Color 1 min: Body [place], Extremities Blue Resuscitation Effort 1 min: Tactile Stimulation SCORE 1 MIN: 9 Heart Rate 5 min: >100 bpm Resp Effort 5 min: Good Cry Reflex Irritability 5 min: Cough or Sneeze or Pulls Away Muscle Tone 5 min: Active Motion Color 5 min: Body [place], Extremities Blue Resuscitation Effort 5 min: N/A SCORE 5 MIN: 9 INFANT INFORMATION BABY A Gestational Age at Delivery: 39.0 Gestational Status: Full Term- 39- 40.6 Weeks Infant Outcome : Liveborn Condition : Stable Sex: Male IDENTIFICATION BABY A Infant Verification Date/Time: 05/15/2020 09:11 ID Band Number: [id number] Mother's Name Verified: Yes RN Verifying : M. Sales, RN Additional Verifying Personnel: BLeora Mcguire, RN WEIGHT/LENGTH BABY A Birthweight (gm): 3507 Weight (lb): 7 Weight (oz): 12 Infant Length (in): 19.00 Length (cm): 48.26 CORD INFORMATION BABY A No. Cord Vessels: 3 Nuchal Cord : N/A Cord Blood Taken: Yes-For Eval (Mom's Blood Type - or O+) Suction: None ASSESSMENT BABY A Skin to Skin: Yes Skin to Skin Time (min): 60 SIGNATURES Assignment: Tayla Calloway MD Signature: with User ID: [email or web address] : with User ID: [email or web address] : I was personally available for consultation and serving as supervising physician for the P.
[2020-05-15] MEDS ORDERED: FERROUS SULFATE 325 MG TABLET PO SCH (10:00)
[2020-05-15] MEDS ORDERED: IBUPROFEN 800 MG TABLET ONE (10:21)
[2020-05-15] MEDS: IBUPROFEN 800 MG TABLET PO SCH ×2 (10:25→20:54)
[2020-05-15] MEDS ORDERED: FERRIC CARBOXYMALTOSE INJ 750 MG/15 ML VIAL IV ONE (11:00)
[2020-05-15] MEDS ORDERED: FERRIC CARBOXYMALTOSE 750 MG in NORMAL SALINE 250 ML IV ONE (12:30)
[2020-05-15] MEDS: SENNOSIDES/DOCUSATE 8.6-50 MG 1 EACH TABLET PO SCH (13:04)
[2020-05-15] MEDS: FAMOTIDINE 20 MG TABLET PO SCH ×2 (13:05→22:30)
[2020-05-15] MEDS: PRENATAL VITAMIN W DHA CAPSULE PO SCH (13:05)
[2020-05-15] MEDS: DOCUSATE SODIUM 100 MG CAPSULE PO SCH ×2 (13:05→20:55)
[2020-05-15] MEDS ORDERED: PIPERACILLIN SODIUM/TAZOBACTAM 3.375 GM in NORMAL SALINE 100 ML IV SCH (18:00)
[2020-05-15] MEDS: PIPERACILLIN SODIUM/TAZOBACTAM 3.375 GM in DEXTROSE 5%-WATER 100 ML IV SCH (21:11)
[2020-05-16] MEDS: PIPERACILLIN SODIUM/TAZOBACTAM 3.375 GM in DEXTROSE 5%-WATER 100 ML IV SCH ×3 (00:01→16:10)
[2020-05-16 06:50] LABS: ABSOLUTE EOSINOPHILS # (AUTO) 0.1 10^3/uL (0.0-0.6); ABSOLUTE LYMPHOCYTES (AUTO) 1.7 10^3/uL (0.5-4.7); ABSOLUTE MONOCYTES (AUTO) 1.3 10^3/uL (0.1-1.4); ABSOLUTE NEUT (AUTO) 9.7 10^3/uL (1.7-8.2); BASOPHILS % (AUTO) 0.3 % (0-2); EOSINOPHILS % (AUTO) 0.5 % (0-6); HEMATOCRIT 25.6 % (36.0-47.0); HEMOGLOBIN 8.4 g/dL (12.0-15.5); MEAN CORPUSCULAR HEMOGLOBIN 28.3 pg (27.0-33.4); MEAN CORPUSCULAR HGB CONC 32.7 g/dL (32.0-36.0); MEAN CORPUSCULAR VOLUME 86 fl (80-97); MONOCYTES % (AUTO) 9.8 % (3-13); PLATELET COUNT 165 10^3/uL (150-450); RED BLOOD COUNT 2.96 10^6/uL (3.72-5.28); RED CELL DISTRIBUTION WIDTH 13.7 % (11.5-14.0); SEGMENTED NEUTROPHILS % (AUTO) 76.4 % (42-78); TOTAL CELLS COUNTED % (AUTO) 100 %; WHITE BLOOD COUNT 12.7 10^3/uL (4.0-10.5)
[2020-05-16] MEDS: IBUPROFEN 800 MG TABLET PO SCH ×3 (07:03→22:09)
--- NOTE | 2020-05-16 08:21 | RADIOLOGY REPORT (SQ) ---
EXAM DESCRIPTION: CHEST 2 VIEWS IMAGES COMPLETED DATE/TIME: 05/16/2020 12:13 am REASON FOR STUDY: cough COMPARISON: 02/14/2017. EXAM PARAMETERS: NUMBER OF VIEWS: two views TECHNIQUE: Digital Frontal and Lateral radiographic views of the chest acquired. RADIATION DOSE: NA LIMITATIONS: none FINDINGS: LUNGS AND PLEURA: Surgical changes in the left upper lobe. No opacities, masses or pneumo thorax. No pleural effusion. MEDIASTINUM AND HILAR STRUCTURES: No masses or contour abnormalities. HEART AND VASCULAR STRUCTURES: Heart normal size. No evidence for failure. BONES: No acute findings. HARDWARE: Surgical sutures in the left upper lobe. OTHER: No other significant finding. IMPRESSION: NO ACUTE RADIOGRAPHIC FINDING IN THE CHEST. TECHNICAL DOCUMENTATION: JOB ID: [id number] 2010 [employer]- All Rights Reserved Reading location - IP/workstation name: [email or web address]
[2020-05-16] MEDS: FAMOTIDINE 20 MG TABLET PO SCH ×2 (10:25→22:10)
[2020-05-16] MEDS: PRENATAL VITAMIN W DHA CAPSULE PO SCH (10:25)
[2020-05-16] MEDS: SENNOSIDES/DOCUSATE 8.6-50 MG 1 EACH TABLET PO SCH (10:26)
[2020-05-16] MEDS: DOCUSATE SODIUM 100 MG CAPSULE PO SCH ×2 (10:26→18:23)
--- NOTE | 2020-05-16 12:04 | PDOC PROGRESS REPORT ---
Subjective-OB Progress Note for:: 05/16/20 Subjective: reports bleeding slowing, pain controlled with current meds. denies needs Physical Exam (OB) Vital Signs: Temp Pulse Resp BP Pulse Ox 97.8 F 55 L 16 117/72 100 05/16/20 09:00 05/16/20 07:46 05/16/20 07:46 05/16/20 07:46 05/16/20 07:46 Intake & Output 05/15/20 05/16/20 05/17/20 06:59 06:59 06:59 Intake Total 1265 Balance 1265 Weight 73.4 kg - Maternal Morbidity 59. Maternal Morbidity (serious complications experinced by the mother associated with labor and delivery: None of the above - Abdomen Description: Soft Hernia Present: No Fundal Description: Firm, Midline Fundal Height: u/3 - u/4 - Abdominal Distension: No distension Tenderness: Nontender - Extremities Lower extremities: Margarette's sign - neg Calf: Normal, Nontender Objective-Diagnostic Laboratory: 05/16/20 06:37 05/16/20 06:37 WBC 12.7 H RBC 2.96 L Hgb 8.4 L Hct 25.6 L MCV 86 MCH 28.3 MCHC 32.7 RDW 13.7 Plt Count 165 Seg Neutrophils % 76.4 Assessment and Plan(PN) - Assessment and Plan (1) Encounter for planned induction of labor Is this a current diagnosis for this admission?: Yes (2) Fever of unknown origin (FUO) Is this a current diagnosis for this admission?: Yes Plan: she has been afebrile since 1440 yesterday. plan to discharge tomorrow if still afebrile, rn staffing notified of dx (3) Grand multiparity Is this a current diagnosis for this admission?: Yes (4) Iron deficiency anemia Is this a current diagnosis for this admission?: Yes (5) Normal vaginal delivery Is this a current diagnosis for this admission?: Yes (6) Polyhydramnios affecting Is this a current diagnosis for this admission?: Yes (7) Precipitous delivery Is this a current diagnosis for this admission?: Yes - Time Spent with Patient Time with patient: Less than 15 minutes - Disposition Anticipated Discharge Disposition: Home, Self Care Anticipated Discharge Timeframe: within 24 hours
[2020-05-17] MEDS: IBUPROFEN 800 MG TABLET PO SCH ×2 (05:22→14:04)
[2020-05-17 08:57] VITALS: BP 115/59
[2020-05-17] MEDS: SENNOSIDES/DOCUSATE 8.6-50 MG 1 EACH TABLET PO SCH (09:48)
[2020-05-17] MEDS: DOCUSATE SODIUM 100 MG CAPSULE PO SCH (09:48)
[2020-05-17] MEDS: PRENATAL VITAMIN W DHA CAPSULE PO SCH (09:48)
[2020-05-17] MEDS: FAMOTIDINE 20 MG TABLET PO SCH (09:48)
--- NOTE | 2020-05-17 10:34 | PDOC DISCHARGE SUMMARY ---
Impression - Admit/DC Date/PCP Admission Date/Primary Care Provider: 05/15/20 02:44 ANGELICA BERMAN MD Discharge Date: 05/17/20 - Discharge Diagnosis (1) Encounter for planned induction of labor Is this a current diagnosis for this admission?: Yes (2) Fever of unknown origin (FUO) Is this a current diagnosis for this admission?: Yes (3) Grand multiparity Is this a current diagnosis for this admission?: Yes (4) Iron deficiency anemia Is this a current diagnosis for this admission?: Yes (5) Normal vaginal delivery Is this a current diagnosis for this admission?: Yes (6) Polyhydramnios affecting Is this a current diagnosis for this admission?: Yes (7) Precipitous delivery Is this a current diagnosis for this admission?: Yes - Additional Information Discharge Diet: Regular Discharge Activity: Balance Activity w/Rest, Pelvic Rest Referrals: [facility] [Provider Group] (Please call and make an appointment for in 4 weeks with [facility], Call with any questions or concerns. ) Prescriptions: Ibuprofen [Motrin 800 mg Tablet] 800 mg PO Q8HP PRN #60 tablet PRN Reason: Home Medications: Vitamin [-U Multiple Vitamin Capsule] 1 tab PO DAILY 05/13/20 Ibuprofen [Motrin 800 mg Tablet] 800 mg PO Q8HP PRN #60 tablet 05/17/20 Hospital Course 59. Maternal Morbidity (serious complications experinced by the mother associated with labor and delivery: None of the above Results Laboratory Results: WBC 12.7 10^3/uL (4.0-10.5) H 05/16/20 06:37 RBC 2.96 10^6/uL (3.72-5.28) L 05/16/20 06:37 Hgb 8.4 g/dL (12.0-15.5) L 05/16/20 06:37 Hct 25.6 % (36.0-47.0) L 05/16/20 06:37 MCV 86 fl (80-97) 05/16/20 06:37 MCH 28.3 pg (27.0-33.4) 05/16/20 06:37 MCHC 32.7 g/dL (32.0-36.0) 05/16/20 06:37 RDW 13.7 % (11.5-14.0) 05/16/20 06:37 Plt Count 165 10^3/uL (150-450) 05/16/20 06:37 Lymph % (Auto) 13.0 % (13-45) 05/16/20 06:37 [place] % (Auto) 9.8 % (3-13) 05/16/20 06:37 Eos % (Auto) 0.5 % (0-6) 05/16/20 06:37 Baso % (Auto) 0.3 % (0-2) 05/16/20 06:37 Absolute Neuts (auto) 9.7 10^3/uL (1.7-8.2) H 05/16/20 06:37 Absolute Lymphs (auto) 1.7 10^3/uL (0.5-4.7) 05/16/20 06:37 Absolute Monos (auto) 1.3 10^3/uL (0.1-1.4) 05/16/20 06:37 Absolute Eos (auto) 0.1 10^3/uL (0.0-0.6) 05/16/20 06:37 Absolute Basos (auto) 0.0 10^3/uL (0.0-0.2) 05/16/20 06:37 Seg Neutrophils % 76.4 % (42-78) 05/16/20 06:37 Urine Color YELLOW 05/15/20 02:45 Urine Appearance CLOUDY 05/15/20 02:45 Urine pH 6.0 (5.0-9.0) 05/15/20 02:45 Ur Specific [place] 1.014 05/15/20 02:45 Urine Protein NEGATIVE mg/dL (NEGATIVE) 05/15/20 02:45 Urine Glucose (UA) NEGATIVE mg/dL (NEGATIVE) 05/15/20 02:45 Urine Ketones NEGATIVE mg/dL (NEGATIVE) 05/15/20 02:45 Urine Blood MODERATE (NEGATIVE) H 05/15/20 02:45 Urine Nitrite NEGATIVE (NEGATIVE) 05/15/20 02:45 Urine Bilirubin NEGATIVE (NEGATIVE) 05/15/20 02:45 Urine Urobilinogen NEGATIVE mg/dL (<2.0) 05/15/20 02:45 Ur Leukocyte Esterase LARGE (NEGATIVE) H 05/15/20 02:45 Urine Ascorbic Acid NEGATIVE (NEGATIVE) 05/15/20 02:45 Urine Opiates Screen NEGATIVE 05/15/20 02:45 Urine Methadone Screen NEGATIVE 05/15/20 02:45 Ur Barbiturates Screen NEGATIVE 05/15/20 02:45 Ur Phencyclidine Scrn NEGATIVE 05/15/20 02:45 Ur Amphetamines Screen NEGATIVE 05/15/20 02:45 U Benzodiazepines Scrn NEGATIVE 05/15/20 02:45 Urine Cocaine Screen NEGATIVE 05/15/20 02:45 U Marijuana (THC) Screen NEGATIVE 05/15/20 02:45 RPR NONREACTIVE (NONREACTIVE) 05/15/20 03:05 Influenza A (RT-PCR) NEGATIVE (NEGATIVE) 05/15/20 15:25 Influenza B (RT-PCR) NEGATIVE (NEGATIVE) 05/15/20 15:25 RSV (RT-PCR) NEGATIVE (NEGATIVE) 05/15/20 15:25 SARS-CoV-2 Rap RNA(RT-PCR) NEGATIVE (NEGATIVE) 05/15/20 15:25 Blood Type O POSITIVE 05/15/20 03:05 Blood Type Confirm O POSITIVE 05/15/20 03:05 Antibody Screen NEGATIVE 05/15/20 03:05 Crossmatch See Detail 05/15/20 03:05 Impressions: Chest X-Ray 05/15/20 00:00 IMPRESSION: NO ACUTE RADIOGRAPHIC FINDING IN THE CHEST. Plan Plan of Treatment: follow up in 4 weeks at [facility] for post check
== END 2020-05-17 12:50 | disposition home or self-care (01) | DRG 806 ==
LOC: LC 02:36 → LR 02:44 → 2S 11:30
PROVIDERS: ADMIT Obstetrics & Gynecology Gynecology; ATTEND Obstetrics & Gynecology Gynecology
PROC: 10E0XZZ Delivery of Products of Conception, External Approach (ICD-10-PCS; principal; 2020-05-15)
PROC: 10907ZC Drainage of Amniotic Fluid, Therapeutic from Products of Conception, Via Natural or Artificial Opening (ICD-10-PCS; 2020-05-15)
DX: O40.3XX0 Polyhydramnios, third trimester, not applicable or unspecified (principal); O86.4 Pyrexia of unknown origin following delivery; Z37.0 Single live birth; O99.334 Smoking (tobacco) complicating childbirth; F17.210 Nicotine dependence, cigarettes, uncomplicated; Z3A.39 39 weeks gestation of pregnancy; O99.344 Other mental disorders complicating childbirth; F31.9 Bipolar disorder, unspecified; F41.1 Generalized anxiety disorder; F41.0 Panic disorder [episodic paroxysmal anxiety]; Z91.410 Personal history of adult physical and sexual abuse; O62.3 Precipitate labor; Z20.828 Contact with and (suspected) exposure to other viral communicable diseases
CPT/HCPCS: 1967; 36415; 71046; 80307; 81005; 85025; 86592; 86850; 86900; 86901; 86920; 87086; 94760; 0241U; C9803; J1439; J2210; J2543; J2590; J2795; J3010; J3490; J7050; J7060